=== PATIENT | male | born 1965 | race Caucasian/White ===

== ENCOUNTER 2016-06-18 10:16 | Inpatient (IN) ==
--- NOTE | 2016-06-18 10:24 | Emergency Department Note ---
Disposition Clinical Impression: Dyspnea, Back pain, Discitis of thoracic region, Osteomyelitis, Drug abuse, IV , Lumbar disc disease, Abnormal urinalysis, Abdominal hernia, Spinal stenosis at L4-L5 level, Hypokalemia Disposition: Admitted As Inpatient Referrals: NO,PCP [Primary Care Provider] - Forms: ED Satisfaction Letter General Adult HPI - General Chief complaint: ED Back Pain/Injury Stated complaint: Back Pain, SOB Time Seen by Provider: 06/18/16 10:23 Source: patient, EMS Limitations: no limitations - History of Present Illness HPI Narrative: 51-year-old male reports emergency department via EMS. He complains of back pain. He is unable to localize the pain. The patient reports his on both sides upper and lower. The pain is not necessarily associated with movement, it is constant but does get worse if he moves. He describes pain from his upper back to his lower back. The patient denies any chest pain he reports it hurts when he breathes. There is no history of cough and coughing up blood leg swelling or pain or syncope. There is no history of fever running as ear pain or sore throat. There is no history of trauma fall or injury no bowel or bladder dysfunction or weakness in her arms legs. He reports his urine has been darkened. The patient has never had a kidney stone. Does not describe unilateral back pain or urinary symptoms. There is no history of fever or rash. No convulsions or confusion or headache neck stiffness or weakness or numbness in the arms or legs. The patient has had no unilateral arm or leg weakness no facial pain slurred speech or difficulty moving the arms or legs independently. There is no history of fall or injury. The patient reports he is a smoker and has asthma but does not require oxygen at home. The patient has not been coughing blood. He is not anticoagulated. The patient states that his only other medical problem was a lumbar surgery years ago. He does not describe sciatica. The patient denies any paresthesias numbness tingling or bowel or bladder issues. Pain Scale: 10 - Related Data Allergies Allergy/AdvReac Type Severity Reaction Status Date / Time Erythromycin Base Allergy Hives Verified 06/18/16 10:19 All systems ED: reviewed and negative except as stated. Past Medical History - Past Medical History Medical history: Reports: asthma - Social History Smoking Status: Current every day smoker Smokeless Tobacco Status: No Alcohol use: Reports: none Drug use: Reports: none Physical Exam - General Limitations: no limitations General appearance: alert, in distress - Head Head exam: atraumatic, normocephalic, normal inspection - Eye Eye exam: Present: normal appearance, PERRL, EOMI - ENT ENT exam: normal exam, normal oropharynx, mucous membranes moist, TM's normal bilaterally, normal external ear exam - Neck Neck exam: Present: normal inspection, full ROM, trachea midline. Absent: tenderness - Chest Chest inspection: Present: normal inspection, symmetric chest wall rise. Absent : tenderness - Respiratory Respiratory exam: Present: prolonged expiratory phase. Absent: respiratory distress, wheezes - Cardiovascular Cardiovascular exam: Present: regular rate, normal rhythm, normal heart sounds - Abdominal Exam Abdominal exam: Present: soft, tenderness, hernia (Umbilical region hernia. No iris incarceration appreciated.). Absent: distention, guarding, rebound, rigidity, organomegaly, trauma, Dietrich's sign, Rovsing's sign, tenderness at McBurney's Point, ascites, pulsatile mass Abdominal tenderness: Present: moderate - Rectal Exam Rectal exam: Present: deferred (Patient declines) - Extremities Exam Extremities exam: Present: normal inspection, full ROM, normal capillary refill. Absent: tenderness, pedal edema, joint swelling, calf tenderness - Expanded Lower Extremity Exam Hip/Pelvis exam: Present: full ROM. Absent: tenderness Upper leg exam: Present: full ROM. Absent: tenderness Knee exam: Present: full ROM. Absent: tenderness Lower leg exam: Present: full ROM. Absent: tenderness, Homans' sign Neurovascular/Tendon exam: Absent: pulse deficit, motor deficit, sensory deficit , tendon deficit, extremity cold to touch, pallor - Back Exam Back exam: Present: normal inspection, full ROM, tenderness, CVA tenderness (L) , paraspinal tenderness, vertebral tenderness. Absent: straight leg raise (R), straight leg raise (L) - Neurological Exam Neurological exam: Present: alert, oriented X3, CN II-XII intact. Absent: motor sensory deficit - Psychiatric Psychiatric exam: Present: anxious - Skin Skin exam: Present: warm, dry, intact, normal color. Absent: rash, cyanosis, diaphoresis, erythema, pallor, mottled Course Vital Signs Temperature 97 F L 06/18/16 10:19 Pulse Rate 98 06/18/16 10:19 Respiratory Rate 22 06/18/16 10:19 Blood Pressure 135/92 06/18/16 10:19 O2 Sat by Pulse Oximetry 98 06/18/16 10:19 Temperature 97 F L 06/18/16 10:19 Pulse Rate 88 06/18/16 12:02 Respiratory Rate 18 06/18/16 12:02 Blood Pressure 129/91 06/18/16 12:02 O2 Sat by Pulse Oximetry 98 06/18/16 12:02 Oxygen Delivery Oxygen Delivery Room Air Medical Decision Making - MDM Narrative Medical decision making narrative: The patient appears to have a discitis and/or osteomyelitis of the thoracic spine. He does have a slightly elevated lactate, he was initially slightly tachypneic. IV fluids were given. Cultures were ordered. Vancomycin and Zosyn were ordered. The patient was given Dilaudid and Zofran in the ED. He does have a history of IV drug abuse and he states his last use was a few months ago. Based on the CT findings highly suspicious for discitis or osteomyelitis of the thoracic spine, I think it would be best to admit the patient to the hospital for IV antibiotics and an MRI to define the patient's illness further, rule out spinal epidural abscess, and to confirm osteomyelitis and/or discitis. He is currently stable. I discussed the case with the hospitalist on-call who will accept the patient. I notified Dr. Greco, orthopedic spine gate person, who recommends holding antibiotics in the ED, adding blood cultures and an ESR, he recommends a biopsy of the area in question to positively identify an organism prior to initiating antibiotics. I have discussed Dr. Greco's recommendations with the hospitalist. The patient is pending admission. - Lab Data Lab results reviewed: Yes I reviewed the patient's lab results. Result diagrams: 06/18/16 11:34 06/18/16 11:34 Lab Results 06/18/16 06/18/16 06/18/16 Range/Units 11:05 11:05 11:34 WBC 8.8 (4.3-11.1) K/mcL RBC 4.32 (4.19-5.50) M/mcL Hgb 12.1 L (12.9-16.9) g/dL Hct 36.7 L (37.5-50.1) % MCV 85.0 (83.0-100.0) fL MCH 28.0 (28.0-33.3) pg MCHC 33.0 (31.6-35.5) g/dL RDW 12.8 (11.5-14.5) % Plt Count 386 (140-400) K/mcL MPV 8.5 L (9.4-12.4) fL Immature Gran % 0.5 (0-4) % Seg Neutrophils % 70.8 % Lymphocytes % 18.6 % Monocytes % 9.6 % Eosinophils % 0.2 % Basophils % 0.3 % Neutrophils # 6.2 (1.6-8.9) K/mcL Lymphocytes # 1.6 (0.6-4.6) K/mcL Monocytes # 0.8 (0.0-1.3) K/mcL Eosinophils # 0.0 (0.0-0.6) K/mcL Basophils # 0.0 (0.0-0.2) K/mcL Sodium (136-145) mEq/L Potassium (3.5-4.5) mEq/L Chloride (98-109) mEq/L Carbon Dioxide (19-29) mEq/L BUN (8-26) mg/dL Creatinine (0.72-1.25) mg/dL Est GFR ( Amer) (> 60) Est GFR (Non-Af Amer) (> 60) BUN/Creatinine Ratio (6-26) Glucose (70-99) mg/dL Calculated Osmolality (280-300) Lactic Acid (0.5-2.2) mmol/L Calcium (8.6-10.8) mg/dL Total Bilirubin (0.2-1.2) mg/dL Direct Bilirubin (0.0-0.5) mg/dL Indirect Bilirubin (0.0-1.2) mg/dL AST (5-34) Units/L ALT (0-55) Units/L Alkaline Phosphatase (38-126) Units/L Troponin I (0-0.03) ng/mL C-Reactive Protein (Less than 5) mg/L B-Natriuretic Peptide (0-100) pg/mL Serum Total Protein (6.0-8.3) g/dL Albumin (3.5-5.0) g/dL Globulin (2.4-3.5) g/dL Albumin/Globulin Ratio (1.1-2.2) Lipase (8-78) Units/L Urine Color Dark Yellow (Yellow) Urine Clarity Cloudy A (Clear) Urine pH 7.5 (5.0-8.0) pH Units Ur Specific [place] 1.029 H (1.010-1.025) Urine Protein 30 H (Neg-Trace) mg/dL Urine Glucose (UA) Normal (Normal) mg/dL Urine Ketones Negative (Negative) mg/dL Urine Blood Negative (Negative) Urine Nitrite Negative (Negative) Urine Bilirubin Small H (Negative) Urine Urobilinogen 2.0 H (Normal) mg/dL Ur Leukocyte Esterase Negative (Negative) Urine Microscopic RBC 0-3 (0-3) per hpf Urine Microscopic WBC 0-3 (0-3) per hpf Ur Squamous Epith Cells Moderate H (None-Few) per lpf Urine Bacteria None Seen (None-Few) per hpf Hyaline Casts None Seen (None-Few) per lpf Ur Culture Indicated? NO (NO) Urine Opiates Screen Positive H (Qacyuw=108) ng/mL Ur Barbiturates Screen Negative (Zgiqnf=910) ng/mL Ur Phencyclidine Scrn Negative (Cutoff=25) ng/mL Ur Amphetamines Screen Negative (Lhaglw=3033) ng/mL U Benzodiazepines Scrn Negative (Fwnzvp=839) ng/mL Urine Cocaine Screen Negative (Cutoff= 300) ng/mL U Marijuana (THC) Screen Negative (Cutoff = 50) ng/mL 06/18/16 06/18/16 06/18/16 Range/Units 11:34 11:34 11:34 WBC (4.3-11.1) K/mcL RBC (4.19-5.50) M/mcL Hgb (12.9-16.9) g/dL Hct (37.5-50.1) % MCV (83.0-100.0) fL MCH (28.0-33.3) pg MCHC (31.6-35.5) g/dL RDW (11.5-14.5) % Plt Count (140-400) K/mcL MPV (9.4-12.4) fL Immature Gran % (0-4) % Seg Neutrophils % % Lymphocytes % % Monocytes % % Eosinophils % % Basophils % % Neutrophils # (1.6-8.9) K/mcL Lymphocytes # (0.6-4.6) K/mcL Monocytes # (0.0-1.3) K/mcL Eosinophils # (0.0-0.6) K/mcL Basophils # (0.0-0.2) K/mcL Sodium 136 (136-145) mEq/L Potassium 3.4 L (3.5-4.5) mEq/L Chloride 99 (98-109) mEq/L Carbon Dioxide 29 (19-29) mEq/L BUN 8 (8-26) mg/dL Creatinine 0.75 (0.72-1.25) mg/dL Est GFR ( Amer) > 60 (> 60) Est GFR (Non-Af Amer) > 60 (> 60) BUN/Creatinine Ratio 11 (6-26) Glucose 103 H (70-99) mg/dL Calculated Osmolality 281 (280-300) Lactic Acid 1.0 (0.5-2.2) mmol/L Calcium 9.1 (8.6-10.8) mg/dL Total Bilirubin 0.5 (0.2-1.2) mg/dL Direct Bilirubin 0.3 (0.0-0.5) mg/dL Indirect Bilirubin 0.2 (0.0-1.2) mg/dL AST 29 (5-34) Units/L ALT 18 (0-55) Units/L Alkaline Phosphatase 79 (38-126) Units/L Troponin I 0.00 (0-0.03) ng/mL C-Reactive Protein (Less than 5) mg/L B-Natriuretic Peptide (0-100) pg/mL Serum Total Protein 8.2 (6.0-8.3) g/dL Albumin 2.3 L (3.5-5.0) g/dL Globulin 5.9 H (2.4-3.5) g/dL Albumin/Globulin Ratio 0.4 L (1.1-2.2) Lipase 16 (8-78) Units/L Urine Color (Yellow) Urine Clarity (Clear) Urine pH (5.0-8.0) pH Units Ur Specific [place] (1.010-1.025) Urine Protein (Neg-Trace) mg/dL Urine Glucose (UA) (Normal) mg/dL Urine Ketones (Negative) mg/dL Urine Blood (Negative) Urine Nitrite (Negative) Urine Bilirubin (Negative) Urine Urobilinogen (Normal) mg/dL Ur Leukocyte Esterase (Negative) Urine Microscopic RBC (0-3) per hpf Urine Microscopic WBC (0-3) per hpf Ur Squamous Epith Cells (None-Few) per lpf Urine Bacteria (None-Few) per hpf Hyaline Casts (None-Few) per lpf Ur Culture Indicated? (NO) Urine Opiates Screen (Xvqdgi=936) ng/mL Ur Barbiturates Screen (Bjezma=293) ng/mL Ur Phencyclidine Scrn (Cutoff=25) ng/mL Ur Amphetamines Screen (Bpshxq=2883) ng/mL U Benzodiazepines Scrn (Wpmvrt=153) ng/mL Urine Cocaine Screen (Cutoff= 300) ng/mL U Marijuana (THC) Screen (Cutoff = 50) ng/mL 06/18/16 06/18/16 Range/Units 11:34 11:34 WBC (4.3-11.1) K/mcL RBC (4.19-5.50) M/mcL Hgb (12.9-16.9) g/dL Hct (37.5-50.1) % MCV (83.0-100.0) fL MCH (28.0-33.3) pg MCHC (31.6-35.5) g/dL RDW (11.5-14.5) % Plt Count (140-400) K/mcL MPV (9.4-12.4) fL Immature Gran % (0-4) % Seg Neutrophils % % Lymphocytes % % Monocytes % % Eosinophils % % Basophils % % Neutrophils # (1.6-8.9) K/mcL Lymphocytes # (0.6-4.6) K/mcL Monocytes # (0.0-1.3) K/mcL Eosinophils # (0.0-0.6) K/mcL Basophils # (0.0-0.2) K/mcL Sodium (136-145) mEq/L Potassium (3.5-4.5) mEq/L Chloride (98-109) mEq/L Carbon Dioxide (19-29) mEq/L BUN (8-26) mg/dL Creatinine (0.72-1.25) mg/dL Est GFR ( Amer) (> 60) Est GFR (Non-Af Amer) (> 60) BUN/Creatinine Ratio (6-26) Glucose (70-99) mg/dL Calculated Osmolality (280-300) Lactic Acid (0.5-2.2) mmol/L Calcium (8.6-10.8) mg/dL Total Bilirubin (0.2-1.2) mg/dL Direct Bilirubin (0.0-0.5) mg/dL Indirect Bilirubin (0.0-1.2) mg/dL AST (5-34) Units/L ALT (0-55) Units/L Alkaline Phosphatase (38-126) Units/L Troponin I (0-0.03) ng/mL C-Reactive Protein 125 H (Less than 5) mg/L B-Natriuretic Peptide 50 (0-100) pg/mL Serum Total Protein (6.0-8.3) g/dL Albumin (3.5-5.0) g/dL Globulin (2.4-3.5) g/dL Albumin/Globulin Ratio (1.1-2.2) Lipase (8-78) Units/L Urine Color (Yellow) Urine Clarity (Clear) Urine pH (5.0-8.0) pH Units Ur Specific [place] (1.010-1.025) Urine Protein (Neg-Trace) mg/dL Urine Glucose (UA) (Normal) mg/dL Urine Ketones (Negative) mg/dL Urine Blood (Negative) Urine Nitrite (Negative) Urine Bilirubin (Negative) Urine Urobilinogen (Normal) mg/dL Ur Leukocyte Esterase (Negative) Urine Microscopic RBC (0-3) per hpf Urine Microscopic WBC (0-3) per hpf Ur Squamous Epith Cells (None-Few) per lpf Urine Bacteria (None-Few) per hpf Hyaline Casts (None-Few) per lpf Ur Culture Indicated? (NO) Urine Opiates Screen (Sjhplf=352) ng/mL Ur Barbiturates Screen (Xwzywf=590) ng/mL Ur Phencyclidine Scrn (Cutoff=25) ng/mL Ur Amphetamines Screen (Kclibg=0802) ng/mL U Benzodiazepines Scrn (Cmptbh=040) ng/mL Urine Cocaine Screen (Cutoff= 300) ng/mL U Marijuana (THC) Screen (Cutoff = 50) ng/mL - Radiology Data Radiology results reviewed: Yes I reviewed the patient's radiology results.
[2016-06-18] MEDS ORDERED: *HR* HYDROmorphone (PF) 1 MG/ML SYRINGE IVP ONE ×3 (10:26→22:15)
[2016-06-18] MEDS ORDERED: Ondansetron 4 MG/2 ML VIAL IVP ONE (10:26)
[2016-06-18 11:11] LABS: Bilirubin,Urine Small (Negative); Blood,Urine Negative (Negative); Clarity,Urine Cloudy (Clear); Color,Urine Dark Yellow (Yellow); Glucose,Urine (UA) Normal (Normal); Ketones,Urine Negative (Negative); Leukocyte Esterase,Urine Negative (Negative); Nitrite,Urine Negative (Negative); PH,Urine 7.5 pH Units (5.0-8.0); Protein,Urine 30 mg/dL (Neg-Trace); Specific Gravity,Urine 1.029 (1.010-1.025)
[2016-06-18 11:13] LABS: Bacteria,Urine None Seen per hpf (None-Few); Hyaline Casts,Urine None Seen per lpf (None-Few); RBC,Urine 0-3 per hpf (0-3); Squamous Epithelial Cell,Urine Moderate per lpf (None-Few); WBC,Urine 0-3 per hpf (0-3)
[2016-06-18 11:18] LABS: Amphetamine Screen,Urine Negative ng/mL (Cutoff=1000); Barbiturate Screen,Urine Negative ng/mL (Cutoff=200); Benzodiazepines Screen,Urine Negative ng/mL (Cutoff=200); Cannabinoid Screen,Urine Negative ng/mL (Cutoff = 50); Cocaine Screen,Urine Negative ng/mL (Cutoff= 300); Opiate Screen,Urine Positive ng/mL (Cutoff=300); Phencyclidine Screen,Urine Negative ng/mL (Cutoff=25)
[2016-06-18 11:53] LABS: Basophils % 0.3 %; Eosinophils % 0.2 %; Hematocrit 36.7 % (37.5-50.1); Hemoglobin 12.1 g/dL (12.9-16.9); Immature Granulocytes % 0.5 % (0-4); Lymphocytes # 1.6 K/mcL (0.6-4.6); Lymphocytes % 18.6 %; Mean Platelet Volume 8.5 fL (9.4-12.4); Monocytes # 0.8 K/mcL (0.0-1.3); Monocytes % 9.6 %; Neutrophils # 6.2 K/mcL (1.6-8.9); Platelet Count 386 K/mcL (140-400); Red Blood Count 4.32 M/mcL (4.19-5.50); Red Cell Distribution Width 12.8 % (11.5-14.5); Segmented Neutrophils % 70.8 %
[2016-06-18 12:10] LABS: Alanine Aminotransferase 18 Units/L (0-55); Albumin 2.3 g/dL (3.5-5.0); Albumin/Globulin Ratio 0.4 (1.1-2.2); Alkaline Phosphatase 79 Units/L (38-126); Aspartate Amino Transferase 29 Units/L (5-34); BUN/Creatinine Ratio 11 (6-26); Bilirubin,Direct 0.3 mg/dL (0.0-0.5); Bilirubin,Indirect 0.2 mg/dL (0.0-1.2); Bilirubin,Total 0.5 mg/dL (0.2-1.2); Blood Urea Nitrogen 8 mg/dL (8-26); Calcium 9.1 mg/dL (8.6-10.8); Carbon Dioxide 29 mEq/L (19-29); Chloride 99 mEq/L (98-109); Globulin 5.9 g/dL (2.4-3.5); Glucose 103 mg/dL (70-99); Lipase 16 Units/L (8-78); Osmolality,Calculated 281 (280-300); Potassium 3.4 mEq/L (3.5-4.5); Sodium 136 mEq/L (136-145); Total Protein 8.2 g/dL (6.0-8.3); eGFR For African Americans > 60 (> 60); eGFR For Non-African Americans > 60 (> 60)
[2016-06-18] MEDS ORDERED: Vancomycin 1,000 MG in D5% in Water 250 ML IVPB ONE (13:26)
[2016-06-18] MEDS ORDERED: Piperacillin/Tazobactam 3.375 GM in D5% in Water (Mini-Bag+) 100 ML IVPB ONE (13:26)
[2016-06-18] MEDS ORDERED: Ondansetron 4 MG/2 ML VIAL IVP PRN (14:33)
[2016-06-18] MEDS ORDERED: Naloxone 0.4 MG/ML INJ IVP PRN (14:33)
[2016-06-18] MEDS: *HR* HYDROmorphone (PF) 1 MG/ML SYRINGE IVP PRN ×4 (14:54→21:19)
--- NOTE | 2016-06-18 15:44 | Internal Med History&Physical ---
Date of Encounter: 06/18/16 Time of Encounter: 15:39 Assessment and Plan (1) Discitis of thoracic region Current visit: Yes Status: Acute Discitis/osteomyelitis T5-T6 seen on CT thoracic spine. Dr. Greco consulted from ortho spine, recommended not giving antibiotics until biopsy obtained by IR , as obtaining biopsy prior to antibiotic initiation is standard of care if patient not toxic or septic. If patient becomes toxic or febrile will initiate broad spectrum antibiotics prior to tissue biopsy and culture. - Ortho spine consulted for assistance with management - MRI cervical/thoracic/lumbar spine pending to confirm radiographic finding of discitis/osteomyelitis and rule out epidural abscess. Although CT shows likely discitis at T5-T6 levels, patient's pain is difficult to completely pinpoint and will evaluate entire spine in this patient who is high risk for epidural abscess given his IV drug use history. - Holding on antibiotics while trying to obtain biopsy with IR - IR physician recommended obtaining MRI and if fluid present will obtain sample - If blood cultures return positive will begin treatment prior to biopsy, as it will likely be same organism. - TTE to eval for endocarditis - ID consult for Monday (2) Drug abuse, IV Current visit: Yes Status: Acute Patient states he has not used IV drugs in several months. UDS was positive for opiates only. (3) Abdominal hernia Current visit: Yes Status: Acute Umbilical hernia. Patient states it has been more difficult to keep in place over the past week because he has so much pain in his back. CT showed inflammation of hernia without evidence of strangulation. On exam easily reducible and not tender. Will monitor. Qualifiers: Hernia type: umbilical Obstruction and gangrene presence: without obstruction or gangrene Qualified Code(s): K42.9 - Umbilical hernia without obstruction or gangrene Internal Medicine - H&P: HPI Chief complaint: Back pain Admitted From: Emergency Dept Plans for Post Hospital Care: Home History of present illness: Mr. Tucker is a 51 year old male with history of IVDU who presented to the ER this afternoon with complaint of severe mid back pain which has been present for the past ten days. He states he last used IV drugs (heroin and crushed opiate pills) three months ago. He has had subjective fever and chills the past three nights. His pain is located in the mid back, is 10/10 constantly. He tried taking acetaminophen without improvement. In the ER CT chest/abdomen/ pelvis was performed which showed discitis and osteomyelitis of T5-T6 level. His vitals were stable in the ER, and he is afebrile. He received IV dilaudid in the ER which improved his pain slightly. He states that he is hungry. Past Med Surg Social Fam HX - Past Medical History Medical history: asthma - Social History Smoking Status: Current every day smoker Smokeless Tobacco Status: No Alcohol use: none Drug use: none Occupational status: unemployed Current living situation: Home - Family History Mother Living Status: Still Living Hx Family Cardiac Disorders: No Hx Family Respiratory Disorders: No Hx Family Cancer: No Hx Family GI Disorders: No Hx Family Genitourinary Disorders: No Hx Family Endocrine Disorder: No Hx Family Musculoskeletal Disorders: No Hx Family Neuromuscular Disorders: No Hx Family Neurologic Disorders: No Hx Family HEENT Disorders: No Hx Family Autoimmune Disorders: No Hx Family Reproductive Disorders: No Hx Family Psychosocial Disorders: Yes (schizophrenia) Hx Family Medical Disorders: No Internal Medicine - H&P: Meds No Known Home Drugs 06/18/16 [History] Allergies Erythromycin Base Allergy (Verified 06/18/16 10:19) Hives All Systems PM: A 10-system review of systems was performed and is negative for pertinent findings except as documented above in the HPI. - Constitutional Vitals: Temp Pulse Resp BP Pulse Ox 98.7 F 72 18 136/86 98 06/18/16 14:43 06/18/16 14:43 06/18/16 14:43 06/18/16 14:43 06/18/16 15:05 General appearance: Present: A&O X 3 Exam: Patient appears mildly distressed secondary to back pain. - Head Head exam: Present: atraumatic - Eye Eye exam: Present: EOMI, sclera anicteric - ENT ENT exam: Present: mucous membranes moist - Neck Neck exam general surgery: Present: supple - Respiratory Respiratory exam: Present: CTAB - Cardiovascular Cardiovascular exam: Present: RRR. Absent: diastolic murmur, gallop, rubs, systolic murmur - GI/Abdominal GI/Abdominal exam: Present: hernia (umbilical, easily reducible), soft. Absent : distended, tenderness - Extremities Exam Extremities exam: Absent: pedal edema - Back Exam Back exam: Present: tenderness (thoracic vertebral tenderness to palpation) - Neurological Exam Neurological exam: Present: no focal deficits - Psychiatric Psychiatric exam: Present: normal affect Additional comments: Tearful at times - Skin Skin exam: Absent: rash Internal Med - H&P Results - Labs CBC & Chem 7: 06/18/16 11:34 06/18/16 11:34
[2016-06-19] MEDS: *HR* HYDROmorphone (PF) 1 MG/ML SYRINGE IVP PRN ×11 (01:16→23:07)
--- NOTE | 2016-06-19 02:18 | Event Note ---
Date of Encounter: 06/19/16 Time of Encounter: 02:14 Called by RN with MRI results. I reviewed MRI results and then contacted Dr. Greco to discuss. He will see patient first thing this morning on rounds and discuss with IR for possible CT guided biopsy/aspirate. He wants notified if patient develops any neurologic change and/or hemodynamic compromise. I reviewed vitals with him, which are presently stable. I also called his nurse and advised her to contact me and Dr. rGeco should patient exhibit any of the above noted concerns per Dr. Greco.
[2016-06-19 06:36] LABS: Hematocrit 35.5 % (37.5-50.1); Hemoglobin 11.8 g/dL (12.9-16.9); Mean Corpuscular HGB Conc 33.2 g/dL (31.6-35.5); Mean Corpuscular Volume 84.3 fL (83.0-100.0); Mean Platelet Volume 8.8 fL (9.4-12.4); Platelet Count 386 K/mcL (140-400); Red Blood Count 4.21 M/mcL (4.19-5.50)
[2016-06-19 06:49] LABS: BUN/Creatinine Ratio 15 (6-26); Blood Urea Nitrogen 10 mg/dL (8-26); Calcium 8.4 mg/dL (8.6-10.8); Carbon Dioxide 27 mEq/L (19-29); Chloride 99 mEq/L (98-109); Glucose 101 mg/dL (70-99); Osmolality,Calculated 275 (280-300); Sodium 133 mEq/L (136-145); eGFR For African Americans > 60 (> 60); eGFR For Non-African Americans > 60 (> 60)
[2016-06-19 10:32] LABS: mecA Methicillin-Resist Gene Not Detected (Not Detect)
[2016-06-19 10:33] LABS: Acinetobacter baumannii by PCR Not Detected (Not Detect); Candida albicans by PCR Not Detected (Not Detect); Candida glabrata by PCR Not Detected (Not Detect); Candida krusei by PCR Not Detected (Not Detect); Candida parapsilosis by PCR Not Detected (Not Detect); Candida tropicalis by PCR Not Detected (Not Detect); Enterococcus by PCR Not Detected (Not Detect); Escherichia coli by PCR Not Detected (Not Detect); Klebsiella oxytoca by PCR Not Detected (Not Detect); Klebsiella pneumoniae by PCR Not Detected (Not Detect); Pseudomonas aeruginosa by PCR Not Detected (Not Detect); Serratia marcescens by PCR Not Detected (Not Detect); Staphylococcus aureus by PCR ***DETECTED*** (Not Detect); Streptococcus agalactiae(B)PCR Not Detected (Not Detect); Streptococcus by PCR Not Detected (Not Detect); Streptococcus pneumoniae PCR Not Detected (Not Detect); Streptococcus pyogenes (A) PCR Not Detected (Not Detect)
[2016-06-19] MEDS ORDERED: Vancomycin 1,500 MG in D5% in Water 250 ML IVPB STA (10:59)
[2016-06-19] MEDS: 0.9 % Sodium Chloride 1,000 ML IVC SCH ×2 (11:48→23:14)
[2016-06-19] MEDS ORDERED: Lidocaine -MPF 1% 5 ML AMPUL INFILT ONE (12:20)
--- NOTE | 2016-06-19 12:31 | Spinal Consult Note ---
Date of Encounter: 06/19/16 Time of Encounter: 12:29 Assessment and Plan (1) Osteomyelitis of spine Current Visit: Yes Status: Acute On exam he is afebrile vital signs are stable. He complains of back pain. He is neurovascularly intact with regard to his bilateral lower extremities. He has a negative straight leg raise. His hips move symmetrically. He has no clonus. MRI lumbar spine reveals signal changes within the L4-5 disc space and adjacent vertebral bodies consistent with osteomyelitis. There is some early abscess in the corresponding foramen at this level. Blood cultures performed on admission now reveal positive Staphylococcus cocci. Impression: 1) discitis and osteomyelitis spine 2) early epidural abscess Plan: We are fortunate that this patient has positive blood cultures. At this point we will not need a CT-guided biopsy of the disc space since we have identified an organism and are awaiting final results. The patient will require 6 weeks of intravenous antibiotic therapy, as well as PICC line placement. He cannot have PICC line placed until his bacteremia resolves. He should have serial inflammatory marker evaluations which include CBC with differential, ESR, and CRP to assess response to antibiotic therapy. Twice weekly examinations until parameters become more normalized would be reasonable. He should also be evaluated clinically for any signs of neurologic deficit or decompensation. He is currently stable, but neurologic decompensation would allow for consideration of surgical intervention. Medical management in this patient is reasonable and the current standard of care when an organism has been identified and the patient does not have any progressive neurologic decompensation. Would also suggest infectious disease consult when available. (2) Epidural abscess Current Visit: Yes Status: Acute History of Present Illness Chief complaint: back pain, infection HPI: Mr. Tucker is a 51 year old male With history of previous bouts of cellulitis requiring intravenous antibiotics who is admitted with significant back pain through the emergency department. He had workup which revealed discitis/osteomyelitis of the spine. He was admitted for definitive management. We are asked to see regarding management of his spine infection. He denies fevers or chills or neurologic symptomatology such as weakness in the legs. Past Med Surg Social Fam HX - Past Medical History Medical history: asthma - Social History Smoking Status: Current every day smoker Smokeless Tobacco Status: No Alcohol use: none Drug use: none - Family History Mother Living Status: Still Living Hx Family Cardiac Disorders: No Hx Family Respiratory Disorders: No Hx Family Cancer: No Hx Family GI Disorders: No Hx Family Genitourinary Disorders: No Hx Family Endocrine Disorder: No Hx Family Musculoskeletal Disorders: No Hx Family Neuromuscular Disorders: No Hx Family Neurologic Disorders: No Hx Family HEENT Disorders: No Hx Family Autoimmune Disorders: No Hx Family Reproductive Disorders: No Hx Family Psychosocial Disorders: Yes (schizophrenia) Hx Family Medical Disorders: No Medications and Allergies No Known Home Drugs 06/18/16 [History] Allergies Erythromycin Base Allergy (Verified 06/18/16 10:19) Hives Results - Labs Result Diagrams: 06/19/16 06:15 06/19/16 06:15 Labs: Abnormal lab results Hgb 11.8 g/dL (12.9-16.9) L 06/19/16 06:15 Hct 35.5 % (37.5-50.1) L 06/19/16 06:15 MPV 8.8 fL (9.4-12.4) L 06/19/16 06:15 ESR >= 130 mm/hr (0-10) H 06/18/16 14:30 Sodium 133 mEq/L (136-145) L 06/19/16 06:15 Creatinine 0.68 mg/dL (0.72-1.25) L 06/19/16 06:15 Glucose 101 mg/dL (70-99) H 06/19/16 06:15 Calculated Osmolality 275 (280-300) L 06/19/16 06:15 Calcium 8.4 mg/dL (8.6-10.8) L 06/19/16 06:15 C-Reactive Protein 125 mg/L (Less than 5) H 06/18/16 11:34 Albumin 2.3 g/dL (3.5-5.0) L 06/18/16 11:34 Globulin 5.9 g/dL (2.4-3.5) H 06/18/16 11:34 Albumin/Globulin Ratio 0.4 (1.1-2.2) L 06/18/16 11:34 Urine Clarity Cloudy (Clear) A 06/18/16 11:05 Ur Specific [place] 1.029 (1.010-1.025) H 06/18/16 11:05 Urine Protein 30 mg/dL (Neg-Trace) H 06/18/16 11:05 Urine Bilirubin Small (Negative) H 06/18/16 11:05 Urine Urobilinogen 2.0 mg/dL (Normal) H 06/18/16 11:05 Ur Squamous Epith Cells Moderate per lpf (None-Few) H 06/18/16 11:05 Urine Opiates Screen Positive ng/mL (Smlzpl=581) H 06/18/16 11:05 Staphylococcus sp PCR DETECTED (Not Detect) A 06/18/16 14:25 Staph aureus (PCR) DETECTED (Not Detect) A 06/18/16 14:25 H & H 06/19/16 Range/Units 06:15 Hgb 11.8 L (12.9-16.9) g/dL Hct 35.5 L (37.5-50.1) % All other labs normal. Consult Discharge Plan - Plan Referrals: NO,PCP [Primary Care Provider] -
--- NOTE | 2016-06-19 12:57 | Electrocardiograph Report ---
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
--- NOTE | 2016-06-19 13:14 | ECHO - Doppler Report ---
Echocardiogram Name: Gurjit Tucker Date of Study: 06/19/2016 Date: 1965 Ht: 70.0 in Medical Record#: [id number] Age: 51 Wt: 178.0 lb Gender: Male BSA: 1.99 Order #: [id number] Location: [facility] Room #: 3[facility] Reading Physician: Sigrid Mobley DO [employer] Manager: Roula Mauro RVT, [facility] Ordering Physician: oMlly Duenas MD Primary Physician: None Indications: discitis/osteo Impressions: LVEF 60%. Normal left ventricular size and systolic function. There is evidence of mild diastolic dysfunction of the left ventricle. Normal right ventricular size and function. No significant valvular dysfunction. No pulmonary hypertension. Left Ventricular Wall Motion: Rest Echo Findings All wall segments showed normal motion. Findings: Study Quality * Technically adequate exam. ECG Findings * Normal sinus rhythm. Left Ventricle * Normal LV chamber size, wall thickness and function. * LVEF 60%. * Mild left ventricular diastolic dysfunction. Left Atrium * Normal left atrial size. Mitral Valve * Mildly thickened mitral valve leaflets. * No mitral stenosis. * No mitral regurgitation. Aortic Valve * No aortic regurgitation. * Aortic valve not well visualized. * No aortic stenosis. Tricuspid Valve * Normal tricuspid valve structure. * Trace tricuspid regurgitation. * Estimated RA pressure is 3 mmHg. * Estimated RVSP is 28 mmHg. * No pulmonary hypertension. Pulmonic Valve * Pulmonic valve is not well visualized. * No pulmonic stenosis. * No pulmonic regurgitation. Pulmonary Artery * Pulmonary artery not well visualized. Right Ventricle * Normal right ventricular structure and function. Right Atrium * Normal right atrial size. Interatrial Septum * No evidence of PFO by color Doppler. IVC * Normal IVC dimensions and inspiratory collapse. Pericardium * There is no pericardial effusion present. Aorta * Normally sized aortic root. History History of Smoking Years 42 Packs 1 Family History of CAD Measurements: BP: 122/ 75 2D Normal Values RVIDd: 3.00 cm <2.7 cm IVSd: 1.00 cm 0.6 - 1.0 cm LVIDd: 4.50 cm 3.7 - 5.6 cm LVPWd: .90 cm 0.6 - 1.1 cm LVIDs: 3.10 cm 1.5 - 3.6 cm AO: 2.60 cm < 4.0 cm LA: 3.40 cm 2.0 - 4.0cm %FS: 31.10 cm >25 % LA volume: 33 Mitral Valve Dec Time:299.00 msec Peak E:.56 m/sec Peak A:.76 m/sec E/A Ratio:0.7 Peak E' Lat Zach:9.52 cm/s Peak E' Med Zach:10 cm/s E/E' Lat Ratio:5.9 E/E' Med Ratio:5.6 Tricuspid Valve TV Regurg Peak Grad: 25.00mmHg TV Regurg Peak Zach: 2.52m/sec Updated by Sigrid Mobley on 06/19/2016 1:07:59 PM electronically signed on 06/19/2016 1:08:38 PM with status of Final Wall Motion [place]: 1=Normal, 2=Hypokinesis, 3=Akinesis, 4=Dyskinesis, 5=Aneurysmal, 6=Hyperkinetic, X=Not Visualized (Blank)=Missing
--- NOTE | 2016-06-19 18:50 | Internal Med Progress Note ---
Date of Encounter: 06/19/16 Time of Encounter: 13:45 - Assessment and plan (1) Back pain Current Visit: Yes Status: Acute Assessment and plan: Secondary to discitis, osteomyelitis and an early epidural abscess at L4-5. Plan as below. Qualifiers: Back pain location: low back pain Chronicity: acute Back pain laterality : midline Sciatica presence: without sciatica Qualified Code(s): M54.5 - Low back pain (2) Discitis of thoracic region Current Visit: Yes Status: Acute Assessment and plan: MRI lumbar spine reveals signal changes within the L4-5 disc space and adjacent vertebral bodies consistent with osteomyelitis. There is some early abscess in the corresponding foramen at this level. 06/18/16: Blood cultures x1 is positive for Staphylococcus cocci. Appreciate neurosurgery input. Repeat blood cultures. Continue IV vancomycin. He will require at least 6 weeks of intravenous antibiotic therapy. Will place PICC line after negative blood cultures. Check 2-D echocardiogram. Continue twice weekly serial CBC, ESR and CRP. Neuro assessment daily and if neurologic compensation he will require surgical intervention. Pain control with IV Dilaudid, however patient has a high tolerance due to IV heroin use. (3) Epidural abscess Current Visit: Yes Status: Acute Assessment and plan: As above (4) Osteomyelitis of spine Current Visit: Yes Status: Acute Assessment and plan: Plan as above (5) Drug abuse, IV Current Visit: Yes Status: Acute - Subjective Interval history: Patient reports moderate back pain. No nausea vomiting. He is eating well. - Constitutional Vitals: Temp Pulse Resp BP Pulse Ox 98.9 F 81 16 110/73 97 06/19/16 15:23 06/19/16 15:23 06/19/16 15:23 06/19/16 15:23 06/19/16 15:23 General appearance: Present: cooperative, A&O X 3, pleasant, no acute distress, answers questions appropriately - Eye Eye exam: Present: PERRL, sclera anicteric - Neck Neck exam general surgery: Present: supple, trachea midline. Absent: lymphadenopathy - Respiratory Respiratory exam: Present: CTAB - Cardiovascular Cardiovascular exam: Present: RRR - GI/Abdominal GI/Abdominal exam: Present: normal bowel sounds, soft. Absent: distended, tenderness - Extremities Exam Extremities exam: Absent: pedal edema - Back Exam Back exam: Present: normal inspection, tenderness, vertebral tenderness - Neurological Exam Neurological exam: Present: alert, oriented X3, no focal deficits, strengths equal and symetr throughout. Absent: facial droop, speech deficit Internal Medicine: Result - Labs CBC & Chem 7: 06/19/16 06:15 06/19/16 06:15 Labs: Short CBC 06/19/16 Range/Units 06:15 WBC 9.1 (4.3-11.1) K/mcL Hgb 11.8 L (12.9-16.9) g/dL Hct 35.5 L (37.5-50.1) % Plt Count 386 (140-400) K/mcL BMP 06/19/16 06:15 Sodium 133 L Potassium 4.0 Chloride 99 Carbon Dioxide 27 BUN 10 Creatinine 0.68 L Glucose 101 H Calcium 8.4 L - Impressions Impressions Thoracic Spine MRI 06/18/16 17:11 IMPRESSION: MRI findings consistent with discitis-osteomyelitis at T5-T6 with associated epidural phlegmon/ early abscess. D/ / Miguel Angel Smith MD / Miguel Angel Smith MD Interpreting Provider: Miguel Angel Smith MD Cervical Spine MRI 06/18/16 17:26 IMPRESSION: Motion limited study. No definite evidence of discitis-osteomyelitis or epidural abscess within the cervical spine. Recommend repeating exam when feasible. D/ / Miguel Angel Smith MD / Miguel Angel Smith MD Interpreting Provider: Miguel Angel Smith MD Lumbar Spine MRI 06/18/16 17:26 IMPRESSION: Septic arthritis and discitis-osteomyelitis of the lower lumbar spine with associated epidural phlegmon/ early abscess. The findings were sent to the Radiology Results Communication Center at 10:04 pm on 06/18/2016to be communicated to a licensed caregiver. D/ / Miguel Angel Smith MD / Miguel Angel Smith MD Interpreting Provider: Miguel Angel Smith MD - VTE Documentation of Mechanical Device: Intermittent pneumatic compression device Consult Discharge Plan - Plan Referrals: NO,PCP [Primary Care Provider] -
[2016-06-19] MEDS: Vancomycin 1,250 MG in D5% in Water 250 ML IVPB SCH (23:07)
[2016-06-20] MEDS: *HR* HYDROmorphone (PF) 1 MG/ML SYRINGE IVP PRN ×6 (01:15→18:25)
[2016-06-20 05:31] LABS: Hematocrit 32.9 % (37.5-50.1); Hemoglobin 11.2 g/dL (12.9-16.9); Mean Corpuscular Hemoglobin 28.8 pg (28.0-33.3); Mean Corpuscular Volume 84.6 fL (83.0-100.0); Mean Platelet Volume 8.8 fL (9.4-12.4); Platelet Count 375 K/mcL (140-400); Red Blood Count 3.89 M/mcL (4.19-5.50)
[2016-06-20 05:32] LABS: Basophils # 0.1 K/mcL (0.0-0.2); Basophils % 0.6 %; Eosinophils # 0.1 K/mcL (0.0-0.6); Hematocrit 33.5 % (37.5-50.1); Hemoglobin 11.1 g/dL (12.9-16.9); Immature Granulocytes % 0.2 % (0-4); Lymphocytes # 2.3 K/mcL (0.6-4.6); Lymphocytes % 26.4 %; Mean Corpuscular HGB Conc 33.1 g/dL (31.6-35.5); Mean Corpuscular Volume 84.4 fL (83.0-100.0); Mean Platelet Volume 8.7 fL (9.4-12.4); Monocytes % 11.5 %; Neutrophils # 5.2 K/mcL (1.6-8.9); Platelet Count 379 K/mcL (140-400); Red Blood Count 3.97 M/mcL (4.19-5.50); Red Cell Distribution Width 12.9 % (11.5-14.5); Segmented Neutrophils % 60.3 %
[2016-06-20 05:43] LABS: BUN/Creatinine Ratio 14 (6-26); Blood Urea Nitrogen 10 mg/dL (8-26); Calcium 8.4 mg/dL (8.6-10.8); Carbon Dioxide 26 mEq/L (19-29); Chloride 97 mEq/L (98-109); Glucose 96 mg/dL (70-99); Osmolality,Calculated 271 (280-300); Potassium 4.2 mEq/L (3.5-4.5); Sodium 131 mEq/L (136-145); eGFR For African Americans > 60 (> 60); eGFR For Non-African Americans > 60 (> 60)
[2016-06-20] MEDS ORDERED: Ketorolac 15 MG/ML VIAL IVP SCH (06:00)
[2016-06-20] MEDS: Pregabalin 50 MG CAPSULE PO SCH ×4 (06:12→21:41)
[2016-06-20] MEDS ORDERED: Ketorolac 15 MG/ML VIAL IVP PRN (07:52)
[2016-06-20] MEDS ORDERED: Magnesium Sulfate 1 GM in D5% in Water 100 ML IVPB ONE (07:54)
[2016-06-20] MEDS ORDERED: Aminoglycoside Consult 1 EACH MC ONE (08:51)
[2016-06-20] MEDS: Vancomycin 1,250 MG in D5% in Water 250 ML IVPB SCH (12:49)
[2016-06-20] MEDS: 0.9 % Sodium Chloride 1,000 ML IVC SCH (12:50)
--- NOTE | 2016-06-20 14:30 | Infectious Disease Consult ---
Date of Encounter: 06/20/16 Time of Encounter: 14:28 Assessment and Plan (1) Bacteremia Status: Acute Assessment and plan: Causative organism MSSA. Blood cultures obtained 06/18/16 are positive 1/2 sets for MSSA. Source likely injection site of IV drugs. No evidence of skin/soft tissue infection noted at this time. Complicated due to seeding of the spine. No endocarditis stigmata noted on exam. The patient has two minor Modified Botello' s Criteria. TTE negative for valvular vegetations or valve dysfunction. Will need YANELI prior to discharge. Discontinue Vancomycin. Start cefazolin 2 grams IV Q8H. Duration of treatment depends on the clinical picture, but likely 6 weeks of IV antibiotics due to the OM/discitis. Repeat blood cultures x 2 sets. Await repeat blood cultures. Monitor renal function and for drug toxicity and dose-adjust antibiotics. Consult renal social worker for discharge planning. Patient will need placed in rehab facility to complete antibiotic therapy. Avoid placing central venous access until repeat blood cultures are negative x 48 hours. (2) Discitis of thoracic region Status: Acute Assessment and plan: Causative organism likely MSSA given the patient's blood culture results. Likely secondary to bacteremia. CT of the T-spine and L-spine showed findings consistent with discitis/OM T5-T6 and spinal stenosis at L4-L5. MRI of the T-spine and L-spine showed findings consistent with T5-T6 discitis/ OM with phlegmon/early abscess and septic arthritis and discitis/OM lower lumbar spine with early abscess. ESR >130. CRP 125. Dr. Greco consulted and following. No surgical intervention required at this time. Patient continues to complain of severe pain. Monitor closely for neurological compromise. Continue antibiotics as above. (3) Osteomyelitis of spine Status: Acute (4) Epidural abscess Status: Acute (5) Drug abuse, IV Status: Chronic Assessment and plan: Patient reports last IVDU 1 week ago. Check HIV and Hepatitis profile. (6) Abdominal hernia Status: Chronic Assessment and plan: Easily reducible and no evidence of strangulation. Qualifiers: Hernia type: umbilical Obstruction and gangrene presence: without obstruction or gangrene Qualified Code(s): K42.9 - Umbilical hernia without obstruction or gangrene (7) Spinal stenosis at L4-L5 level Status: Chronic Infectious Disease HPI - Data of Consult Patient: new to practice Consult date: 06/20/16 Requesting Physician: Krys Valdes Primary Care Provider: PCP NO - Consult Narrative Reason for consult: MSSA Bacteremia/Discitis History of present illness: Mr. Tucker is a 51 year old male past medical history of asthma and remote history of lower back surgery. The patient was admitted to the hospital June for discitis/osteomyelitis of the spine. We are consulted for 2016 for further evaluation and treatment recommendations regarding bacteremia and osteomyelitis of the spine. The patient's a 51-year-old male with past medical history as stated above. The patient presented to the emergency department on the day of admission with complaint of severe back pain that had started approximately 2 weeks prior and had progressively gotten worse. Upon arrival, the patient was tachycardic but was otherwise hemodynamically stable. Laboratory studies showed a normal white blood cell count with ESR greater than 1:30. Lactic acid was normal. CRP was markedly elevated at 125. Urinalysis was obtained and was negative. Urine drug screen was positive for opiates. The patient does report a history of IV drug use. He originally told staff that his last use was 3 months ago, but stated to me that he used approximately [address] the abdomen, pelvis, thoracic spine , lumbar spine, and chest were completed in the ER. Findings were consistent with discitis/osteomyelitis of T5-T6, a local hernia, free fluid in pelvis, spinal stenosis at L4-L5. MRI was recommended and completed that showed confirmed osteomyelitis/discitis at T5-T6 with early abscess as well as septic arthritis and discitis/osteomyelitis of the lower lumbar spine with early abscess. The patient was started on empiric antibiotics. He was admitted to the hospital for further evaluation and treatment. Dr. Greco was consulted and has made recommendations. No surgery is warranted at this time. The patient's white blood cell count remains normal. He has been afebrile. We've been asked to evaluate and make further recommendations. During my exam today, patient endorses a history as stated above. He denies any known injury to the back. He does report a history of IV drug use presently one week ago. He does report that he shares needles with his . Some intermittent headaches, but denies neck pain or rigidity. He denies the congestion, earache, or sore throat. He does report subjective fevers, chills, and rigors. He reports some chest pain and shortness of breath secondary to the back pain limiting his ability to take a deep breath. He also reports a chronic , dry cough. He denies any nausea, vomiting, diarrhea, or constipation. He denies abdominal pain and states that his appetite was poor prior to admission. He denies any urinary complaints. He denies any pain or numbness or tingling in any of his extremities. CC: Krys Valdes Past Med Surg Social Fam HX - Past Medical History Attestation: Yes The following information was validated with the patient. Source: patient, old records reviewed, nursing notes reviewed Medical history: asthma Psychiatric history: no psych history - Past Surgical History Surgical History: orthopedic, other (laminectomy) - Social History Smoking Status: Current every day smoker Packs per day: 1 Smokeless Tobacco Status: No Alcohol use: none Drug use: none, IVDU (Heroin) Occupational status: unemployed Current living situation: Home - Independent Activity Level: Independent ambulation Recent Out of Country Travel Within the Last 8 Weeks: No Exposure or Possible Exposure to Illness During Travel: No - Family History Mother Living Status: Still Living Hx Family Cardiac Disorders: No Hx Family Respiratory Disorders: No Hx Family Cancer: No Hx Family GI Disorders: No Hx Family Genitourinary Disorders: No Hx Family Endocrine Disorder: No Hx Family Musculoskeletal Disorders: No Hx Family Neuromuscular Disorders: No Hx Family Neurologic Disorders: No Hx Family HEENT Disorders: No Hx Family Autoimmune Disorders: No Hx Family Reproductive Disorders: No Hx Family Psychosocial Disorders: Yes (schizophrenia) Hx Family Medical Disorders: No Infectious Disease-CN:Meds No Known Home Drugs 06/18/16 [History] Allergies Erythromycin Base Allergy (Verified 06/18/16 10:19) Hives All systems: reviewed and no additional remarkable complaints except as stated Exam - Constitutional Vitals: Temp Pulse Resp BP Pulse Ox 97.8 F 77 18 121/76 98 06/20/16 13:00 06/20/16 13:00 06/20/16 13:00 06/20/16 13:00 06/20/16 11:16 General appearance: average body habitus, cooperative, mild distress - Head Head exam: Present: atraumatic, normal inspection, normocephalic - Eye Eye exam: Present: EOMI, normal appearance, PERRL Pupils: Present: normal accommodation Additional comments: No subcojunctival hemorrhage noted. - ENT ENT exam: Present: mucous membranes moist - Neck Neck exam: Present: normal inspection. Absent: lymphadenopathy - Respiratory Respiratory exam: Present: CTAB. Absent: rales, respiratory distress, rhonchi, wheezes - Cardiovascular Cardiovascular exam: Present: RRR, +S1, +S2. Absent: diastolic murmur, systolic murmur - GI/Abdominal GI/Abdominal exam: Present: normal bowel sounds, soft. Absent: distended, tenderness Additional comments: Easily-reducible hernia noted to the LLQ. - Extremities Exam Extremities exam: Present: normal inspection. Absent: joint swelling, pedal edema, tenderness Additional comments: No endocarditis stigmata noted. - Back Exam Back exam: Present: vertebral tenderness (T5-T6, lumbar spine) - Neurological Exam Neurological exam: Present: alert, oriented X3, no focal deficits - Psychiatric Psychiatric exam: Present: normal affect, normal mood - Skin Skin exam: Present: dry, intact, normal color, warm Infectious Disease CN: Results - Labs CBC & Chem 7: 06/20/16 05:00 06/20/16 05:00 Cultures: Cultures 06/18/16 14:30 Blood Culture - Preliminary Peripheral Venipuncture No growth. 06/18/16 14:25 Blood Culture - Preliminary Peripheral Venipuncture Gram Positive Cocci Serology: Serology 06/18/16 06/18/16 Range/Units 14:25 11:05 Urine Color Dark Yellow (Yellow) Urine Clarity Cloudy A (Clear) Urine pH 7.5 (5.0-8.0) pH Units Ur Specific Orange 1.029 H (1.010-1.025) Urine Protein 30 H (Neg-Trace) mg/dL Urine Glucose (UA) Normal (Normal) mg/dL Urine Ketones Negative (Negative) mg/dL Urine Blood Negative (Negative) Urine Nitrite Negative (Negative) Urine Bilirubin Small H (Negative) Urine Urobilinogen 2.0 H (Normal) mg/dL Ur Leukocyte Esterase Negative (Negative) Urine Microscopic RBC 0-3 (0-3) per hpf Urine Microscopic WBC 0-3 (0-3) per hpf Ur Squamous Epith Cells Moderate H (None-Few) per lpf Urine Bacteria None Seen (None-Few) per hpf Hyaline Casts None Seen (None-Few) per lpf Ur Culture Indicated? NO (NO) A. baumannii (PCR) Not Detected (Not Detect) Nohemi albicans (PCR) Not Detected (Not Detect) C. glabrata (PCR) Not Detected (Not Detect) C. krusei (PCR) Not Detected (Not Detect) C. parapsilosis (PCR) Not Detected (Not Detect) C. tropicalis (PCR) Not Detected (Not Detect) Enterobacteriac sp PCR Not Detected (Not Detect) E. cloacae complex PCR Not Detected (Not Detect) Enterococcus sp PCR Not Detected (Not Detect) E. coli (PCR) Not Detected (Not Detect) H. influenzae (PCR) Not Detected (Not Detect) Klebsiella oxytoca PCR Not Detected (Not Detect) Klebsiella pneumoniae Not Detected (Not Detect) List. monocytogenes PCR Not Detected (Not Detect) N. meningitidis (PCR) Not Detected (Not Detect) Proteus species (PCR) Not Detected (Not Detect) Serratia marcescens PCR Not Detected (Not Detect) Staphylococcus sp PCR DETECTED A (Not Detect) Staph aureus (PCR) DETECTED A (Not Detect) mecA-Methicil Res Gene Not Detected (Not Detect) Streptococcus sp PCR Not Detected (Not Detect) Group A Strep DNA Not Detected (Not Detect) Group B Strep (PCR) Not Detected (Not Detect) Strep pneumoniae (PCR) Not Detected (Not Detect) P. aeruginosa (PCR) Not Detected (Not Detect) Alona/B-Vanco Res Genes N/A (Not Detect) KPC (blaKPC) Detect PCR N/A (Not Detect) - VTE Documentation of Mechanical Device: Intermittent pneumatic compression device Consult Discharge Plan - Plan Referrals: NO,PCP [Primary Care Provider] -
[2016-06-20] MEDS: *HR* OxyCODONE Immed Rel 5 MG TABLET PO PRN ×2 (15:28→21:39)
--- NOTE | 2016-06-20 15:50 | Internal Med Progress Note ---
Date of Encounter: 06/20/16 Time of Encounter: 10:15 - Assessment and plan (1) Back pain Current Visit: Yes Status: Acute Assessment and plan: Secondary to discitis, osteomyelitis and an early epidural abscess at L4-5. Plan as below. Qualifiers: Back pain location: low back pain Chronicity: acute Back pain laterality : midline Sciatica presence: without sciatica Qualified Code(s): M54.5 - Low back pain (2) Discitis of thoracic region Current Visit: Yes Status: Acute Assessment and plan: MRI lumbar spine reveals signal changes within the L4-5 disc space and adjacent vertebral bodies consistent with osteomyelitis. There is some early abscess in the corresponding foramen at this level. 06/18/16: Blood cultures x1 is positive for Staphylococcus cocci. Second blood culture is negative so far. echocardiogram showed LVEF 60%, normal LV function, mild diastolic dysfunction of the LV, no significant valvular dysfunction. Appreciate ID and neurosurgery service input. Continue IV vancomycin until I&S of blood culture. He will require at least 6 weeks of intravenous antibiotic therapy. Will place PICC line after negative blood cultures. Continue twice weekly serial CBC, ESR and CRP. Neuro assessment daily and if neurologic decompensation he will require surgical intervention. Pain control with IV Dilaudid, however patient has a high tolerance due to IV heroin use. start motrin prn. (3) Epidural abscess Current Visit: Yes Status: Acute Assessment and plan: As above (4) Osteomyelitis of spine Current Visit: Yes Status: Acute Assessment and plan: Plan as above (5) Hyponatremia Current Visit: Yes Status: Acute Assessment and plan: Could be hypovolemic hyponatremia given low chloride. Continue IV normal saline. Close monitoring. (6) Drug abuse, IV Current Visit: Yes Status: Chronic - Subjective Interval history: Patient reports back pain is still moderate to severe but got relief after IV toradol. No nausea vomiting. He is eating well. - Constitutional Vitals: Temp Pulse Resp BP Pulse Ox 99.3 F 79 16 114/74 96 06/20/16 15:26 06/20/16 15:26 06/20/16 15:26 06/20/16 15:26 06/20/16 15:26 General appearance: Present: cooperative, A&O X 3, pleasant, no acute distress, answers questions appropriately - Eye Eye exam: Present: PERRL, sclera anicteric - ENT ENT exam: Present: mucous membranes moist - Neck Neck exam general surgery: Present: supple, trachea midline. Absent: lymphadenopathy - Respiratory Respiratory exam: Present: CTAB - Cardiovascular Cardiovascular exam: Present: RRR - GI/Abdominal GI/Abdominal exam: Present: normal bowel sounds, soft. Absent: distended, tenderness - Back Exam Back exam: Present: paraspinal tenderness, tenderness - Neurological Exam Neurological exam: Present: alert, oriented X3, no focal deficits, strengths equal and symetr throughout. Absent: facial droop, speech deficit - Skin Skin exam: Absent: rash Internal Medicine: Result - Labs CBC & Chem 7: 06/20/16 05:00 06/20/16 05:00 Labs: Short CBC 06/20/16 06/20/16 Range/Units 05:00 05:00 WBC 8.9 8.6 (4.3-11.1) K/mcL Hgb 11.2 L 11.1 L (12.9-16.9) g/dL Hct 32.9 L 33.5 L (37.5-50.1) % Plt Count 375 379 (140-400) K/mcL Neutrophils # 5.2 (1.6-8.9) K/mcL BMP 06/20/16 05:00 Sodium 131 L Potassium 4.2 Chloride 97 L Carbon Dioxide 26 BUN 10 Creatinine 0.72 Glucose 96 Calcium 8.4 L - Impressions Impressions Cervical Spine MRI 06/18/16 17:26 IMPRESSION: Motion limited study. No definite evidence of discitis-osteomyelitis or epidural abscess within the cervical spine. Recommend repeating exam when feasible. D/ / Miguel Angel Smith MD / Miguel Angel Simth MD Interpreting Provider: Miguel Angel Smith MD Lumbar Spine MRI 06/18/16 17:26 IMPRESSION: Septic arthritis and discitis-osteomyelitis of the lower lumbar spine with associated epidural phlegmon/ early abscess. The findings were sent to the Radiology Results Communication Center at 10:04 pm on 06/18/2016to be communicated to a licensed caregiver. D/ / Miguel Angel Smith MD / Miguel Angel Smith MD Interpreting Provider: Miguel Angel Smith MD - VTE Documentation of Mechanical Device: Intermittent pneumatic compression device Consult Discharge Plan - Plan Referrals: NO,PCP [Primary Care Provider] -
[2016-06-20] MEDS: ceFAZolin 2,000 MG in D5% in Water 100 ML IVPB SCH ×2 (16:19→23:41)
[2016-06-20] MEDS: Ibuprofen 600 MG TABLET PO PRN ×2 (16:59→23:41)
[2016-06-20 18:18] LABS: HIV-1&2 Antibody & p24 Ag Nonreactive (Nonreactive); Hepatitis A Antibody IgM Nonreactive (Nonreactive); Hepatitis B Core IgM Nonreactive (Nonreactive); Hepatitis B Surface Antigen Nonreactive (Nonreactive)
[2016-06-20 18:28] LABS: Hepatitis C Virus Antibody Reactive (Nonreactive)
[2016-06-21] MEDS: *HR* HYDROmorphone (PF) 1 MG/ML SYRINGE IVP PRN ×4 (00:27→22:18)
[2016-06-21] MEDS: *HR* OxyCODONE Immed Rel 5 MG TABLET PO PRN ×2 (04:38→15:03)
[2016-06-21] MEDS: 0.9 % Sodium Chloride 1,000 ML IVC SCH ×3 (04:42→16:08)
[2016-06-21] MEDS: Ibuprofen 600 MG TABLET PO PRN ×2 (05:32→18:56)
[2016-06-21 06:56] LABS: Basophils % 0.5 %; Eosinophils # 0.3 K/mcL (0.0-0.6); Eosinophils % 3.3 %; Hematocrit 33.4 % (37.5-50.1); Hemoglobin 10.9 g/dL (12.9-16.9); Immature Granulocytes % 0.1 % (0-4); Lymphocytes % 25.5 %; Mean Corpuscular HGB Conc 32.6 g/dL (31.6-35.5); Mean Corpuscular Hemoglobin 28.1 pg (28.0-33.3); Mean Corpuscular Volume 86.1 fL (83.0-100.0); Mean Platelet Volume 8.9 fL (9.4-12.4); Monocytes % 12.4 %; Neutrophils # 4.5 K/mcL (1.6-8.9); Platelet Count 388 K/mcL (140-400); Red Blood Count 3.88 M/mcL (4.19-5.50); Red Cell Distribution Width 13.1 % (11.5-14.5); Segmented Neutrophils % 58.2 %
[2016-06-21 07:04] LABS: BUN/Creatinine Ratio 14 (6-26); Blood Urea Nitrogen 9 mg/dL (8-26); Calcium 8.4 mg/dL (8.6-10.8); Carbon Dioxide 27 mEq/L (19-29); Chloride 104 mEq/L (98-109); Glucose 87 mg/dL (70-99); Magnesium 1.9 mg/dL (1.6-2.6); Osmolality,Calculated 280 (280-300); Potassium 4.5 mEq/L (3.5-4.5); Sodium 136 mEq/L (136-145); eGFR For African Americans > 60 (> 60); eGFR For Non-African Americans > 60 (> 60)
[2016-06-21] MEDS: ceFAZolin 2,000 MG in D5% in Water 100 ML IVPB SCH ×3 (08:14→23:08)
[2016-06-21] MEDS: Pregabalin 50 MG CAPSULE PO SCH ×3 (09:00→21:37)
[2016-06-21] MEDS ORDERED: Tetracaine/Benzocaine/Butamben 200MG/SPRAY (100SPY/BOT) MM ONE (09:43)
[2016-06-21] MEDS ORDERED: 0.9 % Sodium Chloride 500 ML IVC ONE ×2 (09:43→12:21)
[2016-06-21] MEDS: *HR* FentaNYL (PF) 100 MCG/2 ML VIAL IVP PRN ×3 (11:40→12:05)
[2016-06-21] MEDS: *HR* Midazolam HCl 5 MG/5 ML VIAL IVP PRN ×5 (11:40→12:05)
--- NOTE | 2016-06-21 13:18 | ECHO - Doppler Report ---
Transesophageal Echocardiogram Name: Gurjit Tucker Date of Study: 06/21/2016 Date: 1965 Ht: 70.0in Medical Record#: [id number] Age: 51 Wt: 133.0lb Gender: Male BSA: 1.76 Order #: [id number] Location: [facility] Room #: [facility] Reading Physician: Sigrid Mobley DO [place] Alarm Mechanic: Ordering Physician: Krys Valdes MD Primary Physician: None Indications: Bacteremia Impressions: Study was not completed due to inability to adequately sedate patient (see Findings below). Recommend rescheduling with Anesthesiology present, if clinically appropriate. This was communicated to the ordering physician. Medication Given: Time Medication Dose Units Route 11:40 Versed 1 mg IV 11:40 Fentanyl 25 mcg IV 11:45 Versed 2 mg IV 11:45 Fentanyl 25 mcg IV 11:50 Versed 2 mg IV 11:55 Versed 2 mg IV 12:05 Versed 2 mg IV 12:05 Fentanyl 50 mcg IV Findings: Study Quality * Unable to complete study due to difficulty sedating patient. Patient initially demonstrated decreased arousability and responsiveness to sedation. However, upon attempting intubation of the esophagus, the patient became aroused, agitated and was unable to follow commands. Intubation was attempted four times unsuccessfully. Study was therefore terminated. Procedure Summary: After explaining the risks, benefits, and alternatives of the procedure to the patient in detail and answering all questions to satisfaction, an informed consent was obtained in writing. The patient was NPO for the six hours prior to the procedure. The patient denied dysphagia, odynophagia, and loose teeth (patient is edentulous). The patient was monitored with periodic automated blood pressures and continuous pulse oximetry and telemetry. Continuous oxygen was administered by AL. The patient was placed in the full upright position and the posterior oropharynx was anesthetized as above. The patient was then placed in the left lateral decubitus position. IV sedation was administered. Patient demonstrated decreased responsiveness to verbal and tactile stimuli. Intubation of the esophagus was attempted but each time the posterior oropharynx was encountered, the patient became aroused and agitated. He tried to speak while tube was in the mouth and tried pulling on the tube. Over the course of sedation, intubation was attempted four times. However, patient was unable to become adequately sedated. Therefore, procedure was terminated. Complications: Conscious sedation complication History: History of Smoking Years 40 Packs 1 Family History of CAD Previous Echo06/19/2016 BP 114 / 74 Updated by Sigrid Mobley on 06/21/2016 12:58:04 PM electronically signed on 06/21/2016 1:11:37 PM with status of [employer] [place]: 1=Normal, 2=Hypokinesis, 3=Akinesis, 4=Dyskinesis, 5=Aneurysmal, 6=Hyperkinetic, X=Not Visualized (Blank)=Missing
--- NOTE | 2016-06-21 14:06 | Infectious Disease Progress No ---
Date of Encounter: 06/21/16 Time of Encounter: 14:04 - Assessment and Plan (1) Bacteremia Current Visit: Yes Status: Acute Causative organism MSSA. Blood cultures obtained 06/18/16 are positive 1/2 sets for MSSA. Repeat blood cultures drawn 06/19/16 are NGTD x 2 sets. Source likely injection site of IV drugs. No evidence of skin/soft tissue infection noted at this time. Complicated due to seeding of the spine. No endocarditis stigmata noted on exam. The patient has two minor Modified Botello' s Criteria. TTE negative for valvular vegetations or valve dysfunction. YANELI attempted and unsuccessful. Consider repeating with anesthesia. Continue cefazolin 2 grams IV Q8H. Duration of treatment depends on the clinical picture, but likely 6 weeks of IV antibiotics due to the OM/discitis. Monitor renal function and for drug toxicity and dose-adjust antibiotics. Consult clinical social worker for discharge planning. Patient will need placed in rehab facility to complete antibiotic therapy. Okay to place PICC line when VAT is available. (2) Discitis of thoracic region Current Visit: Yes Status: Acute Causative organism likely MSSA given the patient's blood culture results. Likely secondary to bacteremia. CT of the T-spine and L-spine showed findings consistent with discitis/OM T5-T6 and spinal stenosis at L4-L5. MRI of the T-spine and L-spine showed findings consistent with T5-T6 discitis/ OM with phlegmon/early abscess and septic arthritis and discitis/OM lower lumbar spine with early abscess. ESR >130. CRP 125. Dr. Greco consulted and following. No surgical intervention required at this time. Patient continues to complain of severe pain. Monitor closely for neurological compromise. (3) Osteomyelitis of spine Current Visit: Yes Status: Acute (4) Epidural abscess Current Visit: Yes Status: Acute (5) Drug abuse, IV Current Visit: Yes Status: Chronic Patient reports last IVDU 1 week ago. HIV nonreactive. Hepatitis C antibody reactive. (6) Abdominal hernia Current Visit: Yes Status: Chronic Easily reducible and no evidence of strangulation. Qualifiers: Hernia type: umbilical Obstruction and gangrene presence: without obstruction or gangrene Qualified Code(s): K42.9 - Umbilical hernia without obstruction or gangrene (7) Spinal stenosis at L4-L5 level Current Visit: Yes Status: Chronic - Subjective Interval history: Patient seen and examined. Status post attempted YANELI earlier today. Unable to complete due to inability to sedate the patient adequately for the test. Patient drowsy, but awakens to verbal stimuli. Denies any new complaints. Denies any fevers or chills or rigors. Complains of midthoracic and lower lumbar spinal pain. Denies any fevers or chills or rigors. Denies any chest pain , shortness of breath, or cough. Denies any nausea, vomiting, diarrhea, or constipation. Remains nothing by mouth at this time. Denies urinary complaints. Denies pain in his extremities. Denies oral thrush or skin lesions. Infect Dis PN-Objective Data - Labs CBC & Chem 7: 06/21/16 06:03 06/21/16 06:03 Labs: Laboratory Results - last 24 hr 06/20/16 06/21/16 06/21/16 16:58 06:03 06:03 WBC 7.7 RBC 3.88 L Hgb 10.9 L Hct 33.4 L MCV 86.1 MCH 28.1 MCHC 32.6 RDW 13.1 Plt Count 388 MPV 8.9 L Immature Gran % 0.1 Seg Neutrophils % 58.2 Lymphocytes % 25.5 Monocytes % 12.4 Eosinophils % 3.3 Basophils % 0.5 Neutrophils # 4.5 Lymphocytes # 2.0 Monocytes # 1.0 Eosinophils # 0.3 Basophils # 0.0 Sodium 136 Potassium 4.5 Chloride 104 Carbon Dioxide 27 BUN 9 Creatinine 0.65 L Est GFR ( Amer) > 60 Est GFR (Non-Af Amer) > 60 BUN/Creatinine Ratio 14 Glucose 87 Calculated Osmolality 280 Calcium 8.4 L Magnesium 1.9 Hepatitis A IgM Ab Nonreactive Hep Bs Antigen Nonreactive Hep B Core IgM Ab Nonreactive Hepatitis C Ab Screen Reactive H HIV Ag/Ab Combo Qual Nonreactive Cultures: Cultures 06/19/16 11:21 Blood Culture - Preliminary Peripheral Venipuncture No growth. 06/19/16 11:21 Blood Culture - Preliminary Peripheral Venipuncture No growth. Serology 06/20/16 Range/Units 16:58 Hepatitis A IgM Ab Nonreactive (Nonreactive) Hep Bs Antigen Nonreactive (Nonreactive) Hep B Core IgM Ab Nonreactive (Nonreactive) Hepatitis C Ab Screen Reactive H (Nonreactive) HIV Ag/Ab Combo Qual Nonreactive (Nonreactive) Exam - Constitutional Vitals: Temp Pulse Resp BP Pulse Ox 97.4 F L 63 14 99/59 99 06/21/16 13:14 06/21/16 13:14 06/21/16 13:14 06/21/16 13:14 06/21/16 13:14 General appearance: average body habitus, cooperative, no acute distress - Head Head exam: Present: atraumatic, normal inspection, normocephalic - Eye Eye exam: Present: EOMI, normal appearance, PERRL Pupils: Present: normal accommodation Additional comments: No subconjunctival hemorrhage noted. - ENT ENT exam: Present: mucous membranes moist - Neck Neck exam: Present: normal inspection - Respiratory Respiratory exam: Present: CTAB. Absent: rales, respiratory distress, rhonchi, wheezes - Cardiovascular Cardiovascular exam: Present: RRR, +S1, +S2 - GI/Abdominal GI/Abdominal exam: Present: normal bowel sounds, soft. Absent: distended, tenderness - Extremities Exam Extremities exam: Present: normal inspection. Absent: joint swelling, pedal edema, tenderness Additional comments: No endocarditis stigmata noted. - Back Exam Back exam: Present: vertebral tenderness. Absent: CVA tenderness (L) (Thoracic and lumbar spine), CVA tenderness (R) Additional comments: Negative straight leg raise bilaterally. - Neurological Exam Neurological exam: Present: alert, oriented X3, no focal deficits - Psychiatric Psychiatric exam: Present: normal affect, normal mood - Skin Skin exam: Present: dry, intact, normal color, warm - VTE Documentation of Mechanical Device: Intermittent pneumatic compression device Consult Discharge Plan - Plan Referrals: NO,PCP [Primary Care Provider] -
[2016-06-21] MEDS ORDERED: Lidocaine -MPF 1% 5 ML AMPUL INFILT ONE (14:13)
--- NOTE | 2016-06-21 17:31 | Internal Med Progress Note ---
Date of Encounter: 06/21/16 Time of Encounter: 08:45 - Assessment and plan (1) Back pain Current Visit: Yes Status: Acute Assessment and plan: Secondary to discitis, osteomyelitis and an early epidural abscess at L4-5. Plan as below. Qualifiers: Back pain location: low back pain Chronicity: acute Back pain laterality : midline Sciatica presence: without sciatica Qualified Code(s): M54.5 - Low back pain (2) Discitis of thoracic region Current Visit: Yes Status: Acute Assessment and plan: MRI lumbar spine reveals signal changes within the L4-5 disc space and adjacent vertebral bodies consistent with osteomyelitis. There is some early abscess in the corresponding foramen at this level. 06/18/16: Blood cultures x1 is positive for Staphylococcus cocci. Second blood culture is negative so far. echocardiogram showed LVEF 60%, normal LV function, mild diastolic dysfunction of the LV, no significant valvular dysfunction. Appreciate ID and neurosurgery services input. Change to IV Cefazolin given MSSA in blood culture. He will require at least 6 weeks of intravenous antibiotic therapy. Will place PICC line after negative repeat blood cultures. Continue twice weekly serial CBC, ESR and CRP. Neuro assessment daily and if neurologic decompensation he will require surgical intervention. Pain control with motrin and IV Dilaudid, however patient has a high tolerance due to IV heroin use. PLAN: YANELI today (3) Epidural abscess Current Visit: Yes Status: Acute Assessment and plan: As above (4) Osteomyelitis of spine Current Visit: Yes Status: Acute Assessment and plan: Plan as above (5) Hyponatremia Current Visit: Yes Status: Acute Assessment and plan: Could be hypovolemic hyponatremia given low chloride. resolved. stop IV normal saline. Close monitoring. (6) Drug abuse, IV Current Visit: Yes Status: Chronic - Subjective Interval history: Patient's back pain is mildly better controlled with medications. No nausea vomiting. He is eating well. - Constitutional Vitals: Temp Pulse Resp BP Pulse Ox 97.6 F 67 20 110/71 96 06/21/16 14:45 06/21/16 14:45 06/21/16 14:45 06/21/16 14:45 06/21/16 14:45 General appearance: Present: cooperative, A&O X 3, pleasant, no acute distress, answers questions appropriately - Eye Eye exam: Present: PERRL, sclera anicteric - ENT ENT exam: Present: mucous membranes moist - Neck Neck exam general surgery: Present: supple, trachea midline. Absent: lymphadenopathy - Respiratory Respiratory exam: Present: CTAB - Cardiovascular Cardiovascular exam: Present: RRR - GI/Abdominal GI/Abdominal exam: Present: normal bowel sounds, soft. Absent: distended, tenderness - Extremities Exam Extremities exam: Absent: pedal edema - Back Exam Back exam: Present: paraspinal tenderness, tenderness - Neurological Exam Neurological exam: Present: alert, oriented X3, no focal deficits, strengths equal and symetr throughout. Absent: facial droop, speech deficit - Skin Skin exam: Absent: rash Internal Medicine: Result - Labs CBC & Chem 7: 06/21/16 06:03 06/21/16 06:03 Labs: Short CBC 06/21/16 Range/Units 06:03 WBC 7.7 (4.3-11.1) K/mcL Hgb 10.9 L (12.9-16.9) g/dL Hct 33.4 L (37.5-50.1) % Plt Count 388 (140-400) K/mcL Neutrophils # 4.5 (1.6-8.9) K/mcL BMP 06/21/16 06:03 Sodium 136 Potassium 4.5 Chloride 104 Carbon Dioxide 27 BUN 9 Creatinine 0.65 L Glucose 87 Calcium 8.4 L - VTE Documentation of Mechanical Device: Intermittent pneumatic compression device Consult Discharge Plan - Plan Referrals: NO,PCP [Primary Care Provider] -
[2016-06-22] MEDS: *HR* OxyCODONE Immed Rel 5 MG TABLET PO PRN ×3 (00:03→15:09)
[2016-06-22] MEDS: *HR* HYDROmorphone (PF) 1 MG/ML SYRINGE IVP PRN ×3 (05:45→20:14)
[2016-06-22 07:13] LABS: BUN/Creatinine Ratio 16 (6-26); Blood Urea Nitrogen 11 mg/dL (8-26); Carbon Dioxide 26 mEq/L (19-29); Chloride 103 mEq/L (98-109); Glucose 95 mg/dL (70-99); Osmolality,Calculated 279 (280-300); Potassium 4.1 mEq/L (3.5-4.5); Sodium 135 mEq/L (136-145); eGFR For African Americans > 60 (> 60); eGFR For Non-African Americans > 60 (> 60)
[2016-06-22 07:28] LABS: Calcium 8.8 mg/dL (8.6-10.8)
[2016-06-22] MEDS: Pregabalin 50 MG CAPSULE PO SCH ×3 (08:41→21:08)
[2016-06-22] MEDS: ceFAZolin 2,000 MG in D5% in Water 100 ML IVPB SCH ×2 (08:41→17:17)
[2016-06-22] MEDS: Ibuprofen 600 MG TABLET PO PRN ×2 (11:05→17:59)
--- NOTE | 2016-06-22 12:59 | Infectious Disease Progress No ---
Date of Encounter: 06/22/16 Time of Encounter: 12:57 - Assessment and Plan (1) Bacteremia Current Visit: Yes Status: Acute Causative organism MSSA. Blood cultures obtained 06/18/16 are positive 1/2 sets for MSSA. Repeat blood cultures drawn 06/19/16 are NGTD x 2 sets. Source likely injection site of IV drugs. No evidence of skin/soft tissue infection noted at this time. Complicated due to seeding of the spine. No endocarditis stigmata noted on exam. The patient has two minor Modified Botello' s Criteria. TTE negative for valvular vegetations or valve dysfunction. YANELI attempted and unsuccessful. Consider repeating with anesthesia. Continue cefazolin 2 grams IV Q8H. Duration of treatment depends on the clinical picture, but likely 6 weeks of IV antibiotics due to the OM/discitis. Monitor renal function and for drug toxicity and dose-adjust antibiotics. Consult forensic social worker for discharge planning. Patient will need placed in rehab facility to complete antibiotic therapy. PICC line placed 06/22/16. (2) Discitis of thoracic region Current Visit: Yes Status: Acute Causative organism likely MSSA given the patient's blood culture results. Likely secondary to bacteremia. CT of the T-spine and L-spine showed findings consistent with discitis/OM T5-T6 and spinal stenosis at L4-L5. MRI of the T-spine and L-spine showed findings consistent with T5-T6 discitis/ OM with phlegmon/early abscess and septic arthritis and discitis/OM lower lumbar spine with early abscess. ESR >130. CRP 125. Dr. Greco consulted and following. No surgical intervention required at this time. Pain improved. Monitor closely for neurological compromise. (3) Osteomyelitis of spine Current Visit: Yes Status: Acute (4) Epidural abscess Current Visit: Yes Status: Acute (5) Drug abuse, IV Current Visit: Yes Status: Chronic Patient reports last IVDU 1 week ago. HIV nonreactive. Hepatitis C antibody reactive. (6) Abdominal hernia Current Visit: Yes Status: Chronic Easily reducible and no evidence of strangulation. Qualifiers: Hernia type: umbilical Obstruction and gangrene presence: without obstruction or gangrene Qualified Code(s): K42.9 - Umbilical hernia without obstruction or gangrene (7) Spinal stenosis at L4-L5 level Current Visit: Yes Status: Chronic (8) Hepatitis C antibody positive in blood Current Visit: Yes Status: Acute Outpatient GI referral for management. - Subjective Interval history: Patient seen and examined. No acute events noted overnight. Denies any new complaints. Denies any fevers or chills or rigors. Complains of midthoracic pain that radiates around the left ribs and lower lumbar spinal pain. Denies any fevers or chills or rigors. Denies any chest pain, shortness of breath, or cough. Denies any nausea, vomiting, diarrhea, or constipation. Denies urinary complaints. Denies pain in his extremities. Denies oral thrush or skin lesions. Infect Dis PN-Objective Data - Labs CBC & Chem 7: 06/21/16 06:03 06/22/16 06:12 Labs: Laboratory Results - last 24 hr 06/22/16 06:12 Sodium 135 L Potassium 4.1 Chloride 103 Carbon Dioxide 26 BUN 11 Creatinine 0.70 L Est GFR ( Amer) > 60 Est GFR (Non-Af Amer) > 60 BUN/Creatinine Ratio 16 Glucose 95 Calculated Osmolality 279 L Calcium 8.8 Cultures: Cultures 06/19/16 11:21 Blood Culture - Preliminary Peripheral Venipuncture No growth. 06/19/16 11:21 Blood Culture - Preliminary Peripheral Venipuncture No growth. Serology 06/20/16 Range/Units 16:58 Hepatitis A IgM Ab Nonreactive (Nonreactive) Hep Bs Antigen Nonreactive (Nonreactive) Hep B Core IgM Ab Nonreactive (Nonreactive) Hepatitis C Ab Screen Reactive H (Nonreactive) HIV Ag/Ab Combo Qual Nonreactive (Nonreactive) Exam - Constitutional Vitals: Temp Pulse Resp BP Pulse Ox 98.4 F 84 16 114/63 95 06/22/16 11:14 06/22/16 11:14 06/22/16 11:14 06/22/16 11:14 06/22/16 11:14 General appearance: average body habitus, cooperative, no acute distress - Head Head exam: Present: atraumatic, normal inspection, normocephalic - Eye Eye exam: Present: EOMI, normal appearance, PERRL Pupils: Present: normal accommodation Additional comments: No subconjunctival hemorrhage noted. - ENT ENT exam: Present: mucous membranes moist - Neck Neck exam: Present: normal inspection. Absent: lymphadenopathy - Respiratory Respiratory exam: Present: CTAB. Absent: rales, respiratory distress, rhonchi, wheezes - Cardiovascular Cardiovascular exam: Present: RRR, +S1, +S2 - GI/Abdominal GI/Abdominal exam: Present: normal bowel sounds, soft. Absent: distended, tenderness - Extremities Exam Extremities exam: Present: normal inspection. Absent: joint swelling, pedal edema, tenderness Additional comments: No endocarditis stigmata noted. - Back Exam Back exam: Present: vertebral tenderness (mid-thoracic, lower lumbar) - Neurological Exam Neurological exam: Present: alert, oriented X3, no focal deficits - Psychiatric Psychiatric exam: Present: normal affect, normal mood - Skin Skin exam: Present: dry, intact, normal color, warm - VTE Documentation of Mechanical Device: Venous foot pump, device Consult Discharge Plan - Plan Referrals: NO,PCP [Primary Care Provider] -
--- NOTE | 2016-06-22 15:08 | Internal Med Progress Note ---
Date of Encounter: 06/22/16 Time of Encounter: 08:30 - Assessment and plan (1) Back pain Current Visit: Yes Status: Acute Assessment and plan: Secondary to discitis, osteomyelitis and an early epidural abscess at L4-5. Plan as below. Qualifiers: Back pain location: low back pain Chronicity: acute Back pain laterality : midline Sciatica presence: without sciatica Qualified Code(s): M54.5 - Low back pain (2) Discitis of thoracic region Current Visit: Yes Status: Acute Assessment and plan: L5-4 Discitis, osteomyelitis and epidural abscess. MRI lumbar spine reveals signal changes within the L4-5 disc space and adjacent vertebral bodies consistent with osteomyelitis. There is some early abscess in the corresponding foramen at this level. 06/18/16: Blood cultures /2 is positive for MSSA. 06/19/16: Negative blood culture x2. Echocardiogram showed LVEF 60%, normal LV function, mild diastolic dysfunction of the LV, and no significant valvular dysfunction. 06/21: Unsuccessful attempt for YANELI, patient was agitated despite sedation. Appreciate ID and neurosurgery services input. He will require at least 6 weeks of intravenous antibiotic Cefazolin therapy. Continue twice weekly serial CBC, ESR and CRP. Neuro assessment daily and if neurologic decompensation he will require surgical intervention. Pain control with motrin and IV Dilaudid, however patient has a high tolerance due to IV heroin use. Awaiting social insurance adviser input in regards to discharge planning, patient ready for discharge. Will place PICC line before discharge. (3) Epidural abscess Current Visit: Yes Status: Acute Assessment and plan: As above (4) Osteomyelitis of spine Current Visit: Yes Status: Acute Assessment and plan: Plan as above (5) Hyponatremia Current Visit: Yes Status: Acute Assessment and plan: Could be hypovolemic hyponatremia given low chloride. Improved. received IV normal saline. Close monitoring. (6) Drug abuse, IV Current Visit: Yes Status: Chronic - Subjective Interval history: Patient reports pain in his back that is unchanged since admission but pain medications are helping. - Constitutional Vitals: Temp Pulse Resp BP Pulse Ox 98.4 F 84 16 114/63 95 06/22/16 11:14 06/22/16 11:14 06/22/16 11:14 06/22/16 11:14 06/22/16 11:14 General appearance: Present: cooperative, A&O X 3, pleasant, no acute distress, answers questions appropriately Internal Medicine: Result - Labs CBC & Chem 7: 06/21/16 06:03 06/22/16 06:12 Labs: BMP 06/22/16 06:12 Sodium 135 L Potassium 4.1 Chloride 103 Carbon Dioxide 26 BUN 11 Creatinine 0.70 L Glucose 95 Calcium 8.8 - VTE Documentation of Mechanical Device: Intermittent pneumatic compression device Consult Discharge Plan - Plan Referrals: NO,PCP [Primary Care Provider] -
[2016-06-22] MEDS: *HR* OxyCODONE Immed Rel 15 MG TABLET PO PRN (21:08)
[2016-06-23] MEDS: ceFAZolin 2,000 MG in D5% in Water 100 ML IVPB SCH ×3 (00:06→15:43)
[2016-06-23] MEDS: Ibuprofen 600 MG TABLET PO PRN ×4 (00:07→20:40)
[2016-06-23] MEDS: *HR* OxyCODONE Immed Rel 15 MG TABLET PO PRN ×4 (03:25→22:36)
[2016-06-23] MEDS: *HR* HYDROmorphone (PF) 1 MG/ML SYRINGE IVP PRN ×3 (04:06→20:40)
[2016-06-23 07:11] LABS: BUN/Creatinine Ratio 16 (6-26); Blood Urea Nitrogen 11 mg/dL (8-26); C-Reactive Protein 93 mg/L (Less than 5); Calcium 9.4 mg/dL (8.6-10.8); Carbon Dioxide 28 mEq/L (19-29); Chloride 100 mEq/L (98-109); Glucose 91 mg/dL (70-99); Magnesium 1.9 mg/dL (1.6-2.6); Osmolality,Calculated 279 (280-300); Potassium 4.2 mEq/L (3.5-4.5); Sodium 135 mEq/L (136-145); eGFR For African Americans > 60 (> 60); eGFR For Non-African Americans > 60 (> 60)
[2016-06-23 07:26] LABS: Basophils # 0.1 K/mcL (0.0-0.2); Basophils % 0.7 %; Eosinophils # 0.3 K/mcL (0.0-0.6); Eosinophils % 3.6 %; Hematocrit 34.6 % (37.5-50.1); Hemoglobin 11.2 g/dL (12.9-16.9); Immature Granulocytes % 0.3 % (0-4); Lymphocytes # 2.1 K/mcL (0.6-4.6); Lymphocytes % 27.6 %; Mean Corpuscular HGB Conc 32.4 g/dL (31.6-35.5); Mean Corpuscular Hemoglobin 27.9 pg (28.0-33.3); Mean Corpuscular Volume 86.3 fL (83.0-100.0); Mean Platelet Volume 8.9 fL (9.4-12.4); Monocytes # 0.8 K/mcL (0.0-1.3); Neutrophils # 4.4 K/mcL (1.6-8.9); Platelet Count 445 K/mcL (140-400); Red Blood Count 4.01 M/mcL (4.19-5.50); Red Cell Distribution Width 13.2 % (11.5-14.5); Segmented Neutrophils % 57.8 %
[2016-06-23] MEDS: Pregabalin 50 MG CAPSULE PO SCH ×3 (07:45→20:40)
--- NOTE | 2016-06-23 10:49 | Infectious Disease Progress No ---
Date of Encounter: 06/23/16 Time of Encounter: 10:47 - Assessment and Plan (1) Bacteremia Current Visit: Yes Status: Acute Causative organism MSSA. Blood cultures obtained 06/18/16 are positive 1/2 sets for MSSA. Repeat blood cultures drawn 06/19/16 are NGTD x 2 sets. Source likely injection site of IV drugs. No evidence of skin/soft tissue infection noted at this time. Complicated due to seeding of the spine. No endocarditis stigmata noted on exam. The patient has two minor Modified Botello' s Criteria. TTE negative for valvular vegetations or valve dysfunction. YANELI attempted and unsuccessful. Consider repeating with anesthesia. Continue cefazolin 2 grams IV Q8H. Duration of treatment depends on the clinical picture, but likely 6 weeks of IV antibiotics due to the OM/discitis. Monitor renal function and for drug toxicity and dose-adjust antibiotics. Consult social media assistant for discharge planning. Patient will need placed in rehab facility to complete antibiotic therapy. Awaiting insurance approval before patient will be accepted to facility. PICC line placed 06/22/16. (2) Discitis of thoracic region Current Visit: Yes Status: Acute Causative organism likely MSSA given the patient's blood culture results. Likely secondary to bacteremia. CT of the T-spine and L-spine showed findings consistent with discitis/OM T5-T6 and spinal stenosis at L4-L5. MRI of the T-spine and L-spine showed findings consistent with T5-T6 discitis/ OM with phlegmon/early abscess and septic arthritis and discitis/OM lower lumbar spine with early abscess. ESR >130. CRP 125. Repeat ESR still >130. Re-check in a few days. If not improved, may need to consider re-imaging. Dr. Greco consulted and following. No surgical intervention required at this time. Pain improved. Monitor closely for neurological compromise. (3) Osteomyelitis of spine Current Visit: Yes Status: Acute (4) Epidural abscess Current Visit: Yes Status: Acute (5) Drug abuse, IV Current Visit: Yes Status: Chronic Patient reports last IVDU 1 week ago. HIV nonreactive. Hepatitis C antibody reactive. (6) Abdominal hernia Current Visit: Yes Status: Chronic Easily reducible and no evidence of strangulation. Qualifiers: Hernia type: umbilical Obstruction and gangrene presence: without obstruction or gangrene Qualified Code(s): K42.9 - Umbilical hernia without obstruction or gangrene (7) Spinal stenosis at L4-L5 level Current Visit: Yes Status: Chronic (8) Hepatitis C antibody positive in blood Current Visit: Yes Status: Acute Outpatient GI referral for management. - Subjective Interval history: Patient seen and examined. No acute events noted overnight. Denies any new complaints. Denies any fevers or chills or rigors. Complains of midthoracic pain that radiates around the left ribs and lower lumbar spinal pain. States the pain sometimes makes it difficult to take a deep breath. Denies any chest pain, shortness of breath, or cough. Denies any nausea, vomiting, diarrhea, or constipation. Reports large BM yesterday. Denies urinary complaints. Denies pain in his extremities. Denies oral thrush or skin lesions. Infect Dis PN-Objective Data - Labs CBC & Chem 7: 06/23/16 06:39 06/23/16 06:39 Labs: Laboratory Results - last 24 hr 06/23/16 06/23/16 06/23/16 06:39 06:39 06:39 WBC 7.7 RBC 4.01 L Hgb 11.2 L Hct 34.6 L MCV 86.3 MCH 27.9 L MCHC 32.4 RDW 13.2 Plt Count 445 H MPV 8.9 L Immature Gran % 0.3 Seg Neutrophils % 57.8 Lymphocytes % 27.6 Monocytes % 10.0 Eosinophils % 3.6 Basophils % 0.7 Neutrophils # 4.4 Lymphocytes # 2.1 Monocytes # 0.8 Eosinophils # 0.3 Basophils # 0.1 ESR >= 130 H Sodium 135 L Potassium 4.2 Chloride 100 Carbon Dioxide 28 BUN 11 Creatinine 0.70 L Est GFR ( Amer) > 60 Est GFR (Non-Af Amer) > 60 BUN/Creatinine Ratio 16 Glucose 91 Calculated Osmolality 279 L Calcium 9.4 Magnesium 1.9 C-Reactive Protein 93 H Cultures: Cultures 06/19/16 11:21 Blood Culture - Preliminary Peripheral Venipuncture No growth. 06/19/16 11:21 Blood Culture - Preliminary Peripheral Venipuncture No growth. Serology 06/20/16 Range/Units 16:58 Hepatitis A IgM Ab Nonreactive (Nonreactive) Hep Bs Antigen Nonreactive (Nonreactive) Hep B Core IgM Ab Nonreactive (Nonreactive) Hepatitis C Ab Screen Reactive H (Nonreactive) HIV Ag/Ab Combo Qual Nonreactive (Nonreactive) Exam - Constitutional Vitals: Temp Pulse Resp BP Pulse Ox 97.7 F 74 14 100/67 98 06/23/16 06:52 06/23/16 06:52 06/23/16 06:52 06/23/16 06:52 06/23/16 06:52 General appearance: average body habitus, cooperative, no acute distress - Head Head exam: Present: atraumatic, normal inspection, normocephalic - Eye Eye exam: Present: EOMI, normal appearance, PERRL Pupils: Present: normal accommodation Additional comments: No subconjunctival hemorrhage noted. - ENT ENT exam: Present: mucous membranes moist - Neck Neck exam: Present: normal inspection - Respiratory Respiratory exam: Present: CTAB. Absent: rales, respiratory distress, rhonchi, wheezes - Cardiovascular Cardiovascular exam: Present: RRR, +S1, +S2 - GI/Abdominal GI/Abdominal exam: Present: normal bowel sounds, soft. Absent: distended, tenderness Additional comments: Easily-reducible umbilical hernia noted. - Extremities Exam Extremities exam: Present: normal inspection. Absent: joint swelling, pedal edema, tenderness Additional comments: No endocarditis stigmata noted. - Back Exam Back exam: Present: normal inspection, vertebral tenderness (mid-thoracic, lower lumbar spine) - Neurological Exam Neurological exam: Present: alert, oriented X3, no focal deficits - Psychiatric Psychiatric exam: Present: normal affect, normal mood - Skin Skin exam: Present: dry, intact, normal color, warm - Additional findings Additional findings: PICC line noted to the RUE with transparent dressing C/D/I. - VTE Documentation of Mechanical Device: Intermittent pneumatic compression device Consult Discharge Plan - Plan Referrals: NO,PCP [Primary Care Provider] - (Patient is going to [facility] when medecaid approve..)
--- NOTE | 2016-06-23 16:31 | Internal Med Progress Note ---
Date of Encounter: 06/23/16 Time of Encounter: 16:30 - Assessment and plan (1) Discitis of thoracic region Current Visit: Yes Status: Acute Assessment and plan: Suspected to have an MSSA. Need 6 weeks of IV antibiotics and await stands right now. Because he is an IV drug abuser, and left have a line in place, in the frequency of antibiotics, require that he probably needs a long-term acute care type of follow-up. We are currently waiting for him to get eligible for Medicaid to get this preauthorized for the said treatment (2) Osteomyelitis Current Visit: Yes Status: Acute Assessment and plan: Please see plan outlined above Qualifiers: Osteomyelitis type: acute hematogenous Osteomyelitis location: other site Qualified Code(s): M86.08 - Acute hematogenous osteomyelitis, other sites (3) Drug abuse, IV Current Visit: Yes Status: Chronic (4) Osteomyelitis of spine Current Visit: Yes Status: Acute - Time Spent With Patient less than 15 minutes - Subjective Interval history: No new problems have arisen since yesterday. Still getting IV antibiotics for his discitis and bacteremia. Creatine appreciate IDs help - Constitutional Vitals: Temp Pulse Resp BP Pulse Ox 97.6 F 81 16 102/66 96 06/23/16 15:58 06/23/16 15:58 06/23/16 15:58 06/23/16 15:58 06/23/16 15:58 General appearance: Present: cooperative, A&O X 3, pleasant, no acute distress, answers questions appropriately - Respiratory Respiratory exam: Present: CTAB. Absent: rales, rhonchi, wheezes - Cardiovascular Cardiovascular exam: Present: RRR. Absent: systolic murmur Internal Medicine: Result - Labs CBC & Chem 7: 06/23/16 06:39 06/23/16 06:39 Labs: Short CBC 06/23/16 Range/Units 06:39 WBC 7.7 (4.3-11.1) K/mcL Hgb 11.2 L (12.9-16.9) g/dL Hct 34.6 L (37.5-50.1) % Plt Count 445 H (140-400) K/mcL Neutrophils # 4.4 (1.6-8.9) K/mcL BMP 06/23/16 06:39 Sodium 135 L Potassium 4.2 Chloride 100 Carbon Dioxide 28 BUN 11 Creatinine 0.70 L Glucose 91 Calcium 9.4 - VTE Documentation of Mechanical Device: Intermittent pneumatic compression device Consult Discharge Plan - Plan Referrals: NO,PCP [Primary Care Provider] - ([facility] is going to [facility] when medecaid approve..)
[2016-06-24] MEDS ORDERED: Ketorolac 30 MG/ML VIAL IVP ONE (00:19)
[2016-06-24] MEDS: ceFAZolin 2,000 MG in D5% in Water 100 ML IVPB SCH ×4 (00:35→23:51)
[2016-06-24] MEDS: *HR* HYDROmorphone (PF) 1 MG/ML SYRINGE IVP PRN ×3 (03:58→22:12)
[2016-06-24] MEDS: *HR* OxyCODONE Immed Rel 15 MG TABLET PO PRN ×3 (03:58→16:05)
[2016-06-24] MEDS: Pregabalin 50 MG CAPSULE PO SCH ×3 (08:11→20:06)
[2016-06-24] MEDS: Ibuprofen 600 MG TABLET PO PRN ×3 (08:13→21:21)
--- NOTE | 2016-06-24 11:46 | Infectious Disease Progress No ---
Date of Encounter: 06/24/16 Time of Encounter: 11:45 - Assessment and Plan (1) Bacteremia Current Visit: Yes Status: Acute Causative organism MSSA. Blood cultures obtained 06/18/16 are positive 1/2 sets for MSSA. Repeat blood cultures drawn 06/19/16 are NGTD x 2 sets. Source likely injection site of IV drugs. No evidence of skin/soft tissue infection noted at this time. Complicated due to seeding of the spine. No endocarditis stigmata noted on exam. The patient has two minor Modified Botello' s Criteria. TTE negative for valvular vegetations or valve dysfunction. YANELI attempted and unsuccessful. Consider repeating with anesthesia. Continue cefazolin 2 grams IV Q8H. Duration of treatment depends on the clinical picture, but likely 6 weeks of IV antibiotics due to the OM/discitis. Treat through 07/31/16. Monitor renal function and for drug toxicity and dose-adjust antibiotics. Consult [employer] social worker for discharge planning. Patient will need placed in rehab facility to complete antibiotic therapy. Awaiting insurance approval before patient will be accepted to facility. PICC line placed 06/22/16. Get weekly labs for duration of treatment: CBC, BMP, ESR, CRP. Weekly PICC care per protocol. Follow up with ID post-discharge if not transferred to [facility]. (2) Discitis of thoracic region Current Visit: Yes Status: Acute Causative organism likely MSSA given the patient's blood culture results. Likely secondary to bacteremia. CT of the T-spine and L-spine showed findings consistent with discitis/OM T5-T6 and spinal stenosis at L4-L5. MRI of the T-spine and L-spine showed findings consistent with T5-T6 discitis/ OM with phlegmon/early abscess and septic arthritis and discitis/OM lower lumbar spine with early abscess. ESR >130. CRP 125. Repeat ESR still >130. Re-check in a few days. If not improved, may need to consider re-imaging. Dr. Greco consulted and following. No surgical intervention required at this time. Pain improved. Monitor closely for neurological compromise. (3) Osteomyelitis of spine Current Visit: Yes Status: Acute (4) Epidural abscess Current Visit: Yes Status: Acute (5) Drug abuse, IV Current Visit: Yes Status: Chronic Patient reports last IVDU 1 week ago. HIV nonreactive. Hepatitis C antibody reactive. (6) Abdominal hernia Current Visit: Yes Status: Chronic Easily reducible and no evidence of strangulation. Qualifiers: Hernia type: umbilical Obstruction and gangrene presence: without obstruction or gangrene Qualified Code(s): K42.9 - Umbilical hernia without obstruction or gangrene (7) Spinal stenosis at L4-L5 level Current Visit: Yes Status: Chronic (8) Hepatitis C antibody positive in blood Current Visit: Yes Status: Acute Outpatient GI referral for management. - Subjective Interval history: Patient seen and examined. No acute events noted overnight. Denies any new complaints. Denies any fevers or chills or rigors. Complains of midthoracic pain that radiates around the left ribs and lower lumbar spinal pain. States the pain sometimes makes it difficult to take a deep breath. Denies any chest pain, shortness of breath, or cough. Denies any nausea, vomiting, diarrhea, or constipation. Reports large BM two days ago. Denies urinary complaints. Denies pain in his extremities. Denies oral thrush or skin lesions. Still awaiting insurance approval. Infect Dis PN-Objective Data - Labs CBC & Chem 7: 06/23/16 06:39 06/23/16 06:39 Cultures: Cultures 06/23/16 06:39 Blood Culture - Preliminary Peripheral Venipuncture No growth. 06/19/16 11:21 Blood Culture - Preliminary Peripheral Venipuncture No growth. 06/19/16 11:21 Blood Culture - Preliminary Peripheral Venipuncture No growth. Serology 06/20/16 Range/Units 16:58 Hepatitis A IgM Ab Nonreactive (Nonreactive) Hep Bs Antigen Nonreactive (Nonreactive) Hep B Core IgM Ab Nonreactive (Nonreactive) Hepatitis C Ab Screen Reactive H (Nonreactive) HIV Ag/Ab Combo Qual Nonreactive (Nonreactive) Exam - Constitutional Vitals: Temp Pulse Resp BP Pulse Ox 98.4 F 82 18 114/70 95 06/24/16 10:24 06/24/16 10:24 06/24/16 10:24 06/24/16 10:24 06/24/16 10:24 General appearance: average body habitus, cooperative, no acute distress - Head Head exam: Present: atraumatic, normal inspection, normocephalic - Eye Eye exam: Present: EOMI, normal appearance, PERRL Pupils: Present: normal accommodation Additional comments: No subconjunctival hemorrhage noted. - ENT ENT exam: Present: mucous membranes moist - Neck Neck exam: Present: normal inspection - Respiratory Respiratory exam: Present: CTAB. Absent: rales, respiratory distress, rhonchi, wheezes - Cardiovascular Cardiovascular exam: Present: RRR, +S1, +S2 - GI/Abdominal GI/Abdominal exam: Present: normal bowel sounds, soft. Absent: distended, tenderness Additional comments: Easily-reducible umbilical hernia noted. - Extremities Exam Extremities exam: Present: normal inspection. Absent: joint swelling, pedal edema, tenderness Additional comments: No endocarditis stigmata noted. - Back Exam Back exam: Present: normal inspection, vertebral tenderness (mid-thoracic, lower lumbar.) - Neurological Exam Neurological exam: Present: alert, oriented X3, no focal deficits - Psychiatric Psychiatric exam: Present: normal affect, normal mood - Skin Skin exam: Present: dry, intact, normal color, warm - VTE Documentation of Mechanical Device: Intermittent pneumatic compression device Consult Discharge Plan - Plan Referrals: NO,PCP [Primary Care Provider] - (Patient will follow up with PCP [facility])
--- NOTE | 2016-06-24 14:49 | Internal Med Progress Note ---
Date of Encounter: 06/24/16 Time of Encounter: 14:47 - Assessment and plan (1) Discitis of thoracic region Current Visit: Yes Status: Acute Assessment and plan: staph infection (2) Osteomyelitis Current Visit: Yes Status: Acute Assessment and plan: ID foloowing Qualifiers: Osteomyelitis type: acute hematogenous Osteomyelitis location: other site Qualified Code(s): M86.08 - Acute hematogenous osteomyelitis, other sites (3) Drug abuse, IV Current Visit: Yes Status: Chronic Assessment and plan: heroin says he will seek help to quit (4) Epidural abscess Current Visit: Yes Status: Acute Assessment and plan: continue iv antibiotic (5) Bacteremia Current Visit: Yes Status: Acute Assessment and plan: staph mssa - Subjective Interval history: patient with history of IVDA, presents with back pain diagnosed with t5 6 osteomyelitis and staph bacteremia and concern for epidural absess. ID following today says he is doing ok some back pain - Constitutional Vitals: Temp Pulse Resp BP Pulse Ox 98.4 F 82 18 114/70 95 06/24/16 10:24 06/24/16 10:24 06/24/16 10:24 06/24/16 10:24 06/24/16 10:24 General appearance: Present: cooperative, A&O X 3, pleasant, no acute distress, answers questions appropriately - Eye Eye exam: Present: PERRL, conjuntiva pink, sclera anicteric Pupils: Present: PERRL - Neck Neck exam general surgery: Present: supple, trachea midline. Absent: lymphadenopathy - Respiratory Respiratory exam: Present: CTAB. Absent: accessory muscle use, rales, rhonchi, wheezes - Cardiovascular Cardiovascular exam: Present: RRR, +S1, +S2. Absent: diastolic murmur, gallop, rubs, systolic murmur - Back Exam Back exam: Present: paraspinal tenderness Internal Medicine: Result - Labs CBC & Chem 7: 06/23/16 06:39 06/23/16 06:39 - VTE Documentation of Mechanical Device: Intermittent pneumatic compression device Consult Discharge Plan - Plan Referrals: NO,PCP [Primary Care Provider] - (Patient will follow up with PCP at the [facility])
[2016-06-25] MEDS: *HR* OxyCODONE Immed Rel 15 MG TABLET PO PRN ×3 (00:53→14:03)
[2016-06-25] MEDS: Ibuprofen 600 MG TABLET PO PRN ×2 (03:27→11:08)
[2016-06-25] MEDS: *HR* HYDROmorphone (PF) 1 MG/ML SYRINGE IVP PRN ×4 (06:11→20:32)
[2016-06-25] MEDS: ceFAZolin 2,000 MG in D5% in Water 100 ML IVPB SCH ×2 (08:46→16:28)
[2016-06-25] MEDS: Pregabalin 50 MG CAPSULE PO SCH ×3 (08:46→20:32)
--- NOTE | 2016-06-25 11:19 | Internal Med Progress Note ---
Date of Encounter: 06/25/16 Time of Encounter: 11:17 - Assessment and plan (1) Discitis of thoracic region Current Visit: Yes Status: Acute Assessment and plan: staph infection (2) Osteomyelitis Current Visit: Yes Status: Acute Assessment and plan: mssa infection Id following Qualifiers: Osteomyelitis type: acute hematogenous Osteomyelitis location: other site Qualified Code(s): M86.08 - Acute hematogenous osteomyelitis, other sites (3) Drug abuse, IV Current Visit: Yes Status: Chronic Assessment and plan: iv drug abuse with drug seeking behavior (4) Epidural abscess Current Visit: Yes Status: Acute Assessment and plan: from staph infection (5) Bacteremia Current Visit: Yes Status: Acute Assessment and plan: Id following - Subjective Interval history: patient with history of IVDA, presents with back pain diagnosed with t5 6 osteomyelitis and staph bacteremia and concern for epidural absess. ID following today says he is doing ok some back pain today asking for more narcotics says he was getting dilaudid 2 mg q 2 hrs 1 mg q 4hrs is enough afebrilem wbc normal - Constitutional Vitals: Temp Pulse Resp BP Pulse Ox 98.1 F 98 18 113/75 96 06/25/16 11:09 06/25/16 11:09 06/25/16 11:09 06/25/16 11:09 06/25/16 11:09 General appearance: Present: cooperative, A&O X 3, pleasant, no acute distress, answers questions appropriately - Head Head exam: Present: atraumatic, normocephalic - Eye Eye exam: Present: PERRL, conjuntiva pink, sclera anicteric Pupils: Present: PERRL - Neck Neck exam general surgery: Present: supple, trachea midline. Absent: lymphadenopathy - Respiratory Respiratory exam: Present: CTAB. Absent: accessory muscle use, rales, rhonchi, wheezes - GI/Abdominal GI/Abdominal exam: Present: normal bowel sounds, soft, no peritoneal signs. Absent: distended, tenderness - Back Exam Back exam: Present: tenderness Internal Medicine: Result - Labs CBC & Chem 7: 06/23/16 06:39 06/23/16 06:39 - VTE Documentation of Mechanical Device: Intermittent pneumatic compression device Consult Discharge Plan - Plan Referrals: NO,PCP [Primary Care Provider] - (Patient will follow up with PCP at the [facility])
[2016-06-26] MEDS: *HR* HYDROmorphone (PF) 1 MG/ML SYRINGE IVP PRN ×4 (00:27→20:23)
[2016-06-26] MEDS: ceFAZolin 2,000 MG in D5% in Water 100 ML IVPB SCH ×3 (00:27→16:03)
[2016-06-26] MEDS: *HR* OxyCODONE Immed Rel 15 MG TABLET PO PRN ×3 (00:27→16:04)
[2016-06-26] MEDS: Pregabalin 50 MG CAPSULE PO SCH ×3 (07:23→20:23)
--- NOTE | 2016-06-26 08:58 | Internal Med Progress Note ---
<Kathryn Bernal - Last Filed: 06/26/16 11:37> Date of Encounter: 06/26/16 Time of Encounter: 11:37 - Assessment and plan (1) Bacteremia Current Visit: Yes Status: Acute Assessment and plan: MSSA, likely secondary to IVDU Blood cultures obtained 06/18/16 are positive 1/2 sets for MSSA. Repeat blood cultures drawn 06/19/16 are NGTD x 2 sets. PICC line was placed 06/22/16 Plan: -Continue Cefazolin 2gm IV Q8H, expect patient to need IV tx through 07/31/16 -Patient awaiting placement and insurance approval for ECF placment -Patient will need weekly labs during treatment: CBC, BMP, ESR, CRP, weekly PICC care (2) Discitis of thoracic region Current Visit: Yes Status: Acute Assessment and plan: Causative organism likely MSSA given the patient's blood culture results, likely secondary to bacteremia. CT of the T-spine and L-spine showed findings consistent with discitis/OM T5-T6 and spinal stenosis at L4-L5. MRI of the T-spine and L-spine showed findings consistent with T5-T6 discitis/ OM with phlegmon/early abscess and septic arthritis and discitis/OM lower lumbar spine with early abscess. Dr. Greco consulted and following. No surgical intervention required at this time. Pain improved. Plan: -Will recheck BMP, ESR, CRP today. Per ID if ESR not improved from >130, may need to consider re-imaging. -Monitor closely for neurological compromise. (3) Osteomyelitis of spine Current Visit: Yes Status: Acute Assessment and plan: Plan as above (4) Epidural abscess Current Visit: Yes Status: Acute Assessment and plan: Plan as above (5) Spinal stenosis at L4-L5 level Current Visit: Yes Status: Chronic Assessment and plan: Plan as above (6) Drug abuse, IV Current Visit: Yes Status: Chronic Assessment and plan: Patient reports last IVDU 1 week ago. HIV nonreactive. Hepatitis C antibody reactive. (7) Hepatitis C antibody positive in blood Current Visit: Yes Status: Acute Assessment and plan: Outpatient GI referral. (8) Abdominal hernia Current Visit: Yes Status: Chronic Assessment and plan: reducible, non-strangulated Qualifiers: Hernia type: umbilical Obstruction and gangrene presence: without obstruction or gangrene Qualified Code(s): K42.9 - Umbilical hernia without obstruction or gangrene - Subjective Interval history: Patient seen and examined. He is sitting up in the bed sleeping. He states that his pain is better than yesterday. He denies any chest pain or SOB. - Constitutional Vitals: Temp Pulse Resp BP Pulse Ox 99.0 F 101 18 117/80 94 L 06/26/16 03:50 06/26/16 03:50 06/26/16 03:50 06/26/16 03:50 06/26/16 03:50 General appearance: Present: cooperative, disheveled, A&O X 3, pleasant, no acute distress, answers questions appropriately - Head Head exam: Present: atraumatic, normocephalic - Eye Eye exam: Present: EOMI, PERRL, conjuntiva pink, sclera anicteric Pupils: Present: PERRL - Respiratory Respiratory exam: Present: CTAB. Absent: accessory muscle use, respiratory distress - Cardiovascular Cardiovascular exam: Present: +S1, +S2, tachycardia. Absent: diastolic murmur, gallop, rubs, systolic murmur - GI/Abdominal GI/Abdominal exam: Present: hernia (umbilical, reducible, non-tender or erythemetous, no eccymosis), normal bowel sounds, soft, no peritoneal signs. Absent: distended, tenderness - Extremities Exam Extremities exam: Present: warm, radial pulses palpable and symetrical. Absent : calf tenderness, cyanotic, pedal edema - Back Exam Back exam: Present: tenderness - Neurological Exam Neurological exam: Present: oriented X3, no focal deficits. Absent: facial droop, speech deficit - Psychiatric Psychiatric exam: Present: normal affect, normal mood - Skin Skin exam: Present: diaphoretic. Absent: cyanosis, erythema, rash Internal Medicine: Result - Labs CBC & Chem 7: 06/23/16 06:39 06/23/16 06:39 - VTE Documentation of Mechanical Device: Intermittent pneumatic compression device Consult Discharge Plan - Plan Referrals: NO,PCP [Primary Care Provider] - ([facility] <Kurt Lugo - Last Filed: 06/26/16 14:36> - Assessment and plan (1) MSSA (methicillin susceptible Staphylococcus aureus) septicemia Current Visit: Yes Status: Acute Assessment and plan: On IV abx. Presumptive spread to thoracic spine with discitis and osteomyelitis. Due to IV drug abuse. (2) Discitis of thoracic region Current Visit: Yes Status: Acute Assessment and plan: T5-6 On IV abx Has associated osteomyelitis as well. Repeat blood work (ESR). May need repeat imaging. (3) Osteomyelitis Current Visit: Yes Status: Acute Assessment and plan: Presumptive MSSA due to positive blood culture. On IV Ancef at this time. Qualifiers: Osteomyelitis type: acute hematogenous Osteomyelitis location: other site Qualified Code(s): M86.08 - Acute hematogenous osteomyelitis, other sites (4) Spinal stenosis at L4-L5 level Current Visit: Yes Status: Chronic (5) Hepatitis C antibody positive in blood Current Visit: Yes Status: Acute - Constitutional Vitals: Temp Pulse Resp BP Pulse Ox 99.0 F 101 18 117/80 94 L 06/26/16 03:50 06/26/16 03:50 06/26/16 03:50 06/26/16 03:50 06/26/16 03:50 Internal Medicine: Result - Labs CBC & Chem 7: 06/23/16 06:39 06/26/16 11:57 Labs: BMP 06/26/16 11:57 Sodium 132 L Potassium 4.7 H Chloride 96 L Carbon Dioxide 28 BUN 13 Creatinine 0.80 Glucose 92 Calcium 9.7 - Attending Attestation I examined this patient and my medical decision-making was reviewed with the Resident Physician on 06/26/16. I agree with the documented findings, disposition and treatment plan as described except to the extent set forth below. Mr Tucker is currently admitted for acute thoracic diskitis and osteomyelitis. He is high risk due to potential for worsening infectious and neurologic status. Mr. Tuckre continues to have pain but says is a little better today. No new symptoms. No dyspnea. No high fevers. No new neurologic symptoms. Exam Alert. Comfortable at this time. Heart reg No wheeze Moves all extremities I/P 1. MSSA thoracic diskitis/osteomyelitis - on IV abx 2. MSSA bacteremia 3. Hx IV drug abuse Further diagnoses and plan as above.
[2016-06-26 12:18] LABS: BUN/Creatinine Ratio 16 (6-26); Blood Urea Nitrogen 13 mg/dL (8-26); C-Reactive Protein 84 mg/L (Less than 5); Calcium 9.7 mg/dL (8.6-10.8); Carbon Dioxide 28 mEq/L (19-29); Chloride 96 mEq/L (98-109); Glucose 92 mg/dL (70-99); Osmolality,Calculated 274 (280-300); Potassium 4.7 mEq/L (3.5-4.5); Sodium 132 mEq/L (136-145); eGFR For African Americans > 60 (> 60); eGFR For Non-African Americans > 60 (> 60)
[2016-06-27] MEDS: *HR* OxyCODONE Immed Rel 15 MG TABLET PO PRN ×2 (00:48→08:34)
[2016-06-27] MEDS: *HR* HYDROmorphone (PF) 1 MG/ML SYRINGE IVP PRN ×3 (00:48→09:44)
[2016-06-27] MEDS: ceFAZolin 2,000 MG in D5% in Water 100 ML IVPB SCH ×2 (05:21→10:38)
--- NOTE | 2016-06-27 07:35 | Internal Med Progress Note ---
Addendum entered and electronically signed by Kathryn Bernal DO 06/27/16 11 :50: Will switch patient to ER coverage for pain today (start oxycontin 40mg po BID) and discontinue dilaudid. Will continue current PRN pain meds and adjust as necessary. Original Note: <Kathryn Bernal - Last Filed: 06/27/16 08:45> Date of Encounter: 06/27/16 Time of Encounter: 07:33 - Assessment and plan (1) Bacteremia Current Visit: Yes Status: Acute Assessment and plan: MSSA, likely secondary to IVDU Blood cultures obtained 06/18/16 are positive 1/2 sets for MSSA. Repeat blood cultures drawn 06/19/16 are NGTD x 2 sets. PICC line was placed 06/22/16 Plan: -Continue Cefazolin 2gm IV Q8H, expect patient to need IV tx through 07/31/16 -Patient awaiting placement and insurance approval for ECF placment -Patient will need weekly labs during treatment: CBC, BMP, ESR, CRP, weekly PICC care (2) Discitis of thoracic region Current Visit: Yes Status: Acute Assessment and plan: Causative organism likely MSSA given the patient's blood culture results, likely secondary to bacteremia. CT of the T-spine and L-spine showed findings consistent with discitis/OM T5-T6 and spinal stenosis at L4-L5. MRI of the T-spine and L-spine showed findings consistent with T5-T6 discitis/ OM with phlegmon/early abscess and septic arthritis and discitis/OM lower lumbar spine with early abscess. Dr. Greco consulted and following. No surgical intervention required at this time. Pain improved. 06/26: SCr 0.8, GFR >60, CRP 84 06/27: ESR >130 Plan: -Monitor closely for neurological compromise. (3) Osteomyelitis of spine Current Visit: Yes Status: Acute Assessment and plan: Plan as above (4) Epidural abscess Current Visit: Yes Status: Acute Assessment and plan: Plan as above (5) Spinal stenosis at L4-L5 level Current Visit: Yes Status: Chronic Assessment and plan: Plan as above (6) Drug abuse, IV Current Visit: Yes Status: Chronic Assessment and plan: Patient reports last IVDU 1 week prior to admission. HIV nonreactive. Hepatitis C antibody reactive. (7) Hepatitis C antibody positive in blood Current Visit: Yes Status: Acute Assessment and plan: Outpatient GI referral. (8) Abdominal hernia Current Visit: Yes Status: Chronic Assessment and plan: reducible, non-strangulated Qualifiers: Hernia type: umbilical Obstruction and gangrene presence: without obstruction or gangrene Qualified Code(s): K42.9 - Umbilical hernia without obstruction or gangrene - Subjective Interval history: Patient seen and examined. He is sitting up in the bed eating breakfast. He states that his pain is better than yesterday. He states that he has pain in his ribs radiating from his thoracic spine. It is worse with inspiration. He denies any chest pain or SOB. - Constitutional Vitals: Temp Pulse Resp BP Pulse Ox 98.3 F 96 18 97/67 95 06/27/16 03:58 06/27/16 03:58 06/27/16 03:58 06/27/16 03:58 06/27/16 03:58 General appearance: Present: cooperative, disheveled, A&O X 3, pleasant, no acute distress, answers questions appropriately - Head Head exam: Present: atraumatic, normocephalic - Eye Eye exam: Present: PERRL, conjuntiva pink, sclera anicteric Pupils: Present: PERRL - Respiratory Respiratory exam: Present: CTAB. Absent: accessory muscle use, rales, respiratory distress, rhonchi, wheezes, tachypnea - Cardiovascular Cardiovascular exam: Present: RRR, +S1, +S2. Absent: diastolic murmur, gallop, rubs, systolic murmur - GI/Abdominal GI/Abdominal exam: Present: hernia (reducible, non-strangulated umbilical hernia ), normal bowel sounds, soft, no peritoneal signs. Absent: distended, tenderness - Extremities Exam Extremities exam: Present: warm, radial pulses palpable and symetrical. Absent : calf tenderness, cyanotic, pedal edema - Back Exam Back exam: Present: normal inspection, tenderness. Absent: rash noted - Neurological Exam Neurological exam: Present: alert, oriented X3. Absent: facial droop, speech deficit - Psychiatric Psychiatric exam: Present: normal affect, normal mood - Skin Skin exam: Present: dry, intact. Absent: diaphoretic, erythema, rash Internal Medicine: Result - Labs CBC & Chem 7: 06/23/16 06:39 06/26/16 11:57 Labs: BMP 06/26/16 11:57 Sodium 132 L Potassium 4.7 H Chloride 96 L Carbon Dioxide 28 BUN 13 Creatinine 0.80 Glucose 92 Calcium 9.7 - VTE Documentation of Mechanical Device: Intermittent pneumatic compression device Consult Discharge Plan - Plan Referrals: NO,PCP [Primary Care Provider] - (Patient will [facility]) <Kurt Lugo - Last Filed: 06/27/16 13:01> - Assessment and plan (1) MSSA (methicillin susceptible Staphylococcus aureus) septicemia Current Visit: Yes Status: Acute Assessment and plan: On IV abx. (2) Discitis of thoracic region Current Visit: Yes Status: Acute (3) Osteomyelitis Current Visit: Yes Status: Acute Qualifiers: Osteomyelitis type: acute hematogenous Osteomyelitis location: other site Qualified Code(s): M86.08 - Acute hematogenous osteomyelitis, other sites (4) Spinal stenosis at L4-L5 level Current Visit: Yes Status: Chronic (5) Hepatitis C antibody positive in blood Current Visit: Yes Status: Acute (6) Chronic pain disorder Current Visit: Yes Status: Chronic - Constitutional Vitals: Temp Pulse Resp BP Pulse Ox 98.2 F 97 18 102/70 95 06/27/16 07:53 06/27/16 07:53 06/27/16 07:53 06/27/16 07:53 06/27/16 07:53 Internal Medicine: Result - Labs CBC & Chem 7: 06/23/16 06:39 06/26/16 11:57 - Attending Attestation I examined this patient and my medical decision-making was reviewed with the Resident Physician on 06/27/16. I agree with the documented findings, disposition and treatment plan as described except to the extent set forth below. Mr. Tucker is currently admitted for acute thoracic discitis/osteomyelitis presumed due to MSSA. He is high risk due to multiple medications and changes as well as risk for worsening neurologic status. Mr. Tucker said he slept a little better. He feels maybe pain is beginning to get a little better as well. No fever or chills. No cough. Exam Alert. Comfortable Heart reg No wheeze I/P 1. Acute T5-6 discitis/osteomyelitis presumed due to MSSA - on IV abx 2. Chronic pain Pt with hx of IV drug abuse. Has clear pain issues but needs pain medications. Will start longer acting PO in the hopes of stopping IV med and then weaning off PO meds in future. D/C planning - ? [facility] Further diagnoses and plan as above.
[2016-06-27 07:53] VITALS: BP 102/70
[2016-06-27] MEDS: Pregabalin 50 MG CAPSULE PO SCH ×2 (08:34→15:25)
[2016-06-27] MEDS ORDERED: *HR* OxyCODONE ER (12 HR) 40 MG TABLET PO SCH (11:16)
--- NOTE | 2016-06-27 12:58 | Infectious Disease Progress No ---
Date of Encounter: 06/27/16 Time of Encounter: 12:55 - Assessment and Plan (1) Bacteremia Current Visit: Yes Status: Acute Causative organism MSSA. Blood cultures obtained 06/18/16 are positive 1/2 sets for MSSA. Repeat blood cultures drawn 06/19/16 are negative x 2 sets. Source likely injection site of IV drugs. No evidence of skin/soft tissue infection noted at this time. Complicated due to seeding of the spine. No endocarditis stigmata noted on exam. The patient has two minor Modified Botello' s Criteria. TTE negative for valvular vegetations or valve dysfunction. YANELI attempted and unsuccessful. Continue cefazolin 2 grams IV Q8H. Duration of treatment depends on the clinical picture, but likely 6 weeks of IV antibiotics due to the OM/discitis. Treat through 07/31/16. Monitor renal function and for drug toxicity and dose-adjust antibiotics. conference services manager consulted and following. Patient has been approved for Medicaid. Awaiting ECF/LTACH placement. PICC line placed 06/22/16. Get weekly labs for duration of treatment: CBC, BMP, ESR, CRP. Weekly PICC care per protocol. Follow up with ID 2 weeks post-discharge if not transferred to LTACH. (2) Discitis of thoracic region Current Visit: Yes Status: Acute Causative organism likely MSSA given the patient's blood culture results. Likely secondary to bacteremia. CT of the T-spine and L-spine showed findings consistent with discitis/OM T5-T6 and spinal stenosis at L4-L5. MRI of the T-spine and L-spine showed findings consistent with T5-T6 discitis/ OM with phlegmon/early abscess and septic arthritis and discitis/OM lower lumbar spine with early abscess. Dr. Greco consulted and following. No surgical intervention required at this time. Pain improved. Monitor closely for neurological compromise. Continue antibiotics as above. (3) Osteomyelitis of spine Current Visit: Yes Status: Acute (4) Epidural abscess Current Visit: Yes Status: Acute (5) Drug abuse, IV Current Visit: Yes Status: Chronic Patient reports last IVDU 1 prior to admission. HIV nonreactive. Hepatitis C antibody reactive. (6) Abdominal hernia Current Visit: Yes Status: Chronic Easily reducible and no evidence of strangulation. Qualifiers: Qualified Code(s): K42.9 - Umbilical hernia without obstruction or gangrene (7) Spinal stenosis at L4-L5 level Current Visit: Yes Status: Chronic (8) Hepatitis C antibody positive in blood Current Visit: Yes Status: Acute Outpatient GI referral for management. - Subjective Interval history: Patient seen and examined. Weekend notes reviewed. No acute events noted. Denies any new complaints. Denies any fevers or chills or rigors. Complains of midthoracic pain that radiates around the left ribs and lower lumbar spinal pain , but states it seems to be getting better. States the pain sometimes makes it difficult to take a deep breath. Denies any chest pain, shortness of breath, or cough. Denies any nausea, vomiting, diarrhea, or constipation. Reports large BM this morning. Denies urinary complaints. Denies pain in his extremities. Denies oral thrush or skin lesions. Insurance has been approved. Awaiting placement. Infect Dis PN-Objective Data - Labs CBC & Chem 7: 06/23/16 06:39 06/26/16 11:57 Labs: Laboratory Results - last 24 hr 06/27/16 08:00 ESR >= 130 H Cultures: Cultures 06/19/16 11:21 Blood Culture - Final Peripheral Venipuncture No growth. 06/19/16 11:21 Blood Culture - Final Peripheral Venipuncture No growth. 06/23/16 06:39 Blood Culture - Preliminary Peripheral Venipuncture No growth. Serology 06/20/16 Range/Units 16:58 Hepatitis A IgM Ab Nonreactive (Nonreactive) Hep Bs Antigen Nonreactive (Nonreactive) Hep B Core IgM Ab Nonreactive (Nonreactive) Hepatitis C Ab Screen Reactive H (Nonreactive) HIV Ag/Ab Combo Qual Nonreactive (Nonreactive) Exam - Constitutional Vitals: Temp Pulse Resp BP Pulse Ox 98.2 F 97 18 102/70 95 06/27/16 07:53 06/27/16 07:53 06/27/16 07:53 06/27/16 07:53 06/27/16 07:53 General appearance: average body habitus, cooperative, no acute distress - Head Head exam: Present: atraumatic, normal inspection, normocephalic - Eye Eye exam: Present: EOMI, normal appearance, PERRL Pupils: Present: normal accommodation - ENT ENT exam: Present: mucous membranes moist - Neck Neck exam: Present: normal inspection - Respiratory Respiratory exam: Present: CTAB. Absent: rales, respiratory distress, rhonchi, wheezes - Cardiovascular Cardiovascular exam: Present: RRR, +S1, +S2 - GI/Abdominal GI/Abdominal exam: Present: normal bowel sounds, soft. Absent: distended, tenderness Additional comments: Easily-reducible umbilical hernia noted. - Extremities Exam Extremities exam: Present: normal inspection. Absent: joint swelling, pedal edema, tenderness - Back Exam Back exam: Present: vertebral tenderness (mid-thoracic, lower lumbar) - Neurological Exam Neurological exam: Present: alert, oriented X3, no focal deficits - Psychiatric Psychiatric exam: Present: normal affect, normal mood - Skin Skin exam: Present: dry, intact, normal color, warm - Additional findings Additional findings: PICC line noted to the RUE With transparent dressing C/D/I. - VTE Documentation of Mechanical Device: Intermittent pneumatic compression device Consult Discharge Plan - Plan Referrals: NO,PCP [Primary Care Provider] - (Patient will follow up with PCP at the [facility])
--- NOTE | 2016-06-27 15:40 | Discharge Summary ---
Date of Encounter: 06/27/16 Time of Encounter: 09:00 - Discharge Diagnosis (1) MSSA (methicillin susceptible Staphylococcus aureus) septicemia Priority: Primary Status: Acute (2) Discitis of thoracic region Priority: Primary Status: Acute (3) Osteomyelitis Priority: Primary Status: Acute Qualifiers: Osteomyelitis type: acute hematogenous Osteomyelitis location: other site Qualified Code(s): M86.08 - Acute hematogenous osteomyelitis, other sites (4) Spinal stenosis at L4-L5 level Priority: Secondary Status: Chronic (5) Hepatitis C antibody positive in blood Priority: Secondary Status: Acute (6) Chronic pain disorder Priority: Secondary Status: Chronic - Discharge Medications Prescriptions: OxyCODONE Immed Rel [Roxicodone 15 MG] 15 mg PO Q6HR PRN #6 tablet PRN Reason: Severe Pain OxyCODONE ER (12 HR) [OxyCONTIN] 40 mg PO Q12HR #4 tab.er.12h Cefazolin Sodium/Dextrose,Iso [Cefazolin-Dextrose 2 gm/100 ml] 2 gm IV Q8H #1 froz.piggy Home Medications: Cefazolin Sodium/Dextrose,Iso [Cefazolin-Dextrose 2 gm/100 ml] 2 gm IV Q8H #1 froz.pigkendall 06/27/16 [Rx] Cyclobenzaprine [Flexeril] 10 mg PO TID tablet 06/27/16 [Rx] Duloxetine [Cymbalta] 30 mg PO DAILY capsule. 06/27/16 [Rx] Ibuprofen [Motrin] 600 mg PO Q6HR PRN #0 tablet 06/27/16 [Rx] OxyCODONE ER (12 HR) [OxyCONTIN] 40 mg PO Q12HR #4 tab.er.12h 06/27/16 [Rx] OxyCODONE Immed Rel [Roxicodone 15 MG] 15 mg PO Q6HR PRN #6 tablet 06/27/16 [Rx] Pregabalin [Lyrica] 50 mg PO TID capsule 06/27/16 [Rx] Allergies/Adverse Reactions: Allergies Erythromycin Base Allergy (Verified 06/18/16 10:19) Hives Date of admission: 06/18/16 14:33 Primary care physician: PCP NO Consults: 06/18/16 15:05 Consult to Nutrition [CONS] Routine Comment: Consulting Provider: NUTRITION Reason for Dietary Consult: MST Score 06/18/16 17:33 Consult to Infectious Diseases [CONS] Routine Consulting Provider: Infectious Disease [place] Reason for Consult: discitis/osteomyelitis Call Completed: Yes 06/19/16 12:19 Consult to Associate Automation Engineer [CONS] Routine Reason for SW Consult: IV RUSSELL upon discharge, discharge planning 06/19/16 12:21 Consult to Invasive Line Access Team [CONS] Routine Reason for Consult: Picc Line Insertion 6 weeks of IV ATB to place when bactremia improved. Line Type: PICC 06/21/16 14:16 Consult to Invasive Line Access Team [CONS] Routine Reason for Consult: Picc Line Insertion Line Type: PICC PICC line indications: oysterman Med/Antibiotic Time Notified: 14:16 Call Completed: Yes Discharging clinician: Kurt Lugo Anticipated date of discharge: 06/27/16 - Patient Status Disposition: Transfer Short-Term Hosp Condition: Fair Functional capacity at discharge: independent ambulation Overall status at discharge: patient is progressing back to baseline - Discharge Instructions Follow Up With: NO,PCP [Primary Care Provider] - (Patient will follow up with PCP at the [facility]) - Diet and Activity Activity: as per physical therapy Diet: regular diet Hospital course: Mr. Tucker is a 51 year old male with hx of IVDU presented to ED on 06/18 with complaints of mid back pain, fever and chillis. Tylenol did not help. In ED he had CT of chest/abdomen and pelvis which revealed discitis and osteomyelitis of T5-6 area. He was subsequently admitted. Mr. Tucker was admitted to [facility]. He was evaluated by spine surgery and MRI performed to confirm diagnosis and r/o abscess. MRI did show some early abscess in the region. Blood cx returned with staph species and biopsy was postponed as organism known. He was started on IV abx and seen by ID service. Inflammatory markers were markedly elevated as well. Blood cx returned as MSSA. He underwent YANELI which was negative for endocarditis. He was switched to Cefazolin 2g IV q8h. He tolerated this regimen and arrangements were made for discharge to a facility to complete IV abx therapy. PICC line was placed when blood cx were negative. He had issues with pain control and was on PO Oxy IR. IV Dilaudid restarted during a night due to pain. Today he was changed to long acting oxycodone to try to get better pain control over time while completing abx therapy. On 06/27/16 he was afebrile with stable vitals. At that time he was felt ready for d/c to LTACH. - Time Spent with Patient Total time spent providing and/or coordinating discharge services: 44min - Constitutional Vitals: Temp Pulse Resp BP Pulse Ox 98.2 F 97 18 102/70 95 06/27/16 07:53 06/27/16 07:53 06/27/16 07:53 06/27/16 07:53 06/27/16 07:53 General appearance: Present: cooperative, disheveled, A&O X 3, pleasant, answers questions appropriately - Head Head exam: Present: normocephalic - Eye Eye exam: Present: EOMI, conjuntiva pink - ENT ENT exam: Present: mucous membranes moist - Respiratory Respiratory exam: Present: decreased breath sounds, CTAB. Absent: rhonchi, wheezes - Cardiovascular Cardiovascular exam: Present: RRR. Absent: systolic murmur, tachycardia - GI/Abdominal GI/Abdominal exam: Present: soft. Absent: tenderness - Extremities Exam Extremities exam: Present: warm. Absent: joint swelling, pedal edema - Neurological Exam Neurological exam: Present: alert, oriented X3, no focal deficits - Psychiatric Psychiatric exam: Present: normal affect, normal mood - Skin Skin exam: Present: dry, warm. Absent: rash - VTE Documentation of Mechanical Device: Intermittent pneumatic compression device
--- NOTE | 2016-06-27 15:57 | Physician Discharge Referral ---
[facility] Referral Info Transfer To: [facility] Provider in Charge: Kurt Lugo DO Provider in Charge after Transfer: PCP - Diagnosis (1) MSSA (methicillin susceptible Staphylococcus aureus) septicemia Priority: Primary Status: Acute (2) Discitis of thoracic region Priority: Primary Status: Acute (3) Osteomyelitis Priority: Primary Status: Acute (4) Spinal stenosis at L4-L5 level Priority: Secondary Status: Chronic (5) Hepatitis C antibody positive in blood Priority: Secondary Status: Acute (6) Chronic pain disorder Priority: Secondary Status: Chronic Prognosis: Fair Aware of Diagnosis: Patient Aware of Prognosis: Patient - Transfer Medications Prescriptions: OxyCODONE Immed Rel [Roxicodone 15 MG] 15 mg PO Q6HR PRN #6 tablet PRN Reason: Severe Pain OxyCODONE ER (12 HR) [OxyCONTIN] 40 mg PO Q12HR #4 tab.er.12h Cefazolin Sodium/Dextrose,Iso [Cefazolin-Dextrose 2 gm/100 ml] 2 gm IV Q8H #1 froz.piggy Home Medications: Cefazolin Sodium/Dextrose,Iso [Cefazolin-Dextrose 2 gm/100 ml] 2 gm IV Q8H #1 froz.pigkendall 06/27/16 [Rx] Cyclobenzaprine [Flexeril] 10 mg PO TID tablet 06/27/16 [Rx] Duloxetine [Cymbalta] 30 mg PO DAILY capsule. 06/27/16 [Rx] Ibuprofen [Motrin] 600 mg PO Q6HR PRN #0 tablet 06/27/16 [Rx] OxyCODONE ER (12 HR) [OxyCONTIN] 40 mg PO Q12HR #4 tab.er.12h 06/27/16 [Rx] OxyCODONE Immed Rel [Roxicodone 15 MG] 15 mg PO Q6HR PRN #6 tablet 06/27/16 [Rx] Pregabalin [Lyrica] 50 mg PO TID capsule 06/27/16 [Rx] Allergies/Adverse Reactions: Allergies Erythromycin Base Allergy (Verified 06/18/16 10:19) Hives - Respiratory Orders Smoking Cessation: Smoking cessation has been advised. For more information, call the [employer] Tobacco Quit Line at 7-181-CZYV-NOW. - Ancillary Orders May use pressure relief devices daily prn - Advance Directives Code Status: Full Code - Mobility Orders Ambulate - Rehabiliation Orders Rehab Potential: Fair Rehab Orders: Evaluation for Physical Therapy, Evaluation for Occupational Therapy - Treatments Skin tear care topically daily PRN per policy, May check for fecal impaction rectally daily PRN, Fleet enema rectally every other day PRN cleansing purposes - Diet Orders Regular CERTIFICATION: I certify that the transfer of the above named patient to an Extended Care Facility is necessary for the continuing treatment of the diagnosis listed. The above information is true and accurate reflection of patient's current condition. Confidential - Redisclosure prohibited without a patient's written consent.
== END 2016-06-27 17:16 | DRG 720 ==
LOC: 3NENU 10:16 → EMEROO 10:16 → 3NENU 14:23 → SUATTDRO 14:33 → 2ANU 06-22 12:55
PROVIDERS: ADMIT Internal Medicine; ATTEND Internal Medicine

== ENCOUNTER 2016-11-16 23:26 | Inpatient (IN) ==
--- NOTE | 2016-11-16 23:50 | Emergency Department Note ---
Disposition Clinical Impression: Osteomyelitis Qualifiers: Osteomyelitis type: subacute Osteomyelitis location: unspecified site Qualified Code(s): M86.20 - Subacute osteomyelitis, unspecified site Disposition: Admitted As Inpatient Condition: Good Time of Disposition: 02:33 General Adult HPI - General Chief complaint: ED Back Pain/Injury Stated complaint: back pain Time Seen by Provider: 11/16/16 23:44 Source: patient Limitations: no limitations Nursing Notes Reviewed: Yes Vital Signs Reviewed: Yes - History of Present Illness HPI Narrative: Several month history of upper back pain. Does have a history of osteomyelitis. Has had to leave several times AMA due to social issues. Is requesting to be treated for this at this time. Chest pain but states that he is unsure if this is his heart or his back that is causing the pain. It is left -sided. Denies any shortness of breath. Denies fevers or chills. Denies nausea vomiting or diarrhea. Denies any numbness or tingling to his extremities. Pain Scale: 10 - Related Data Home Medications Medication Instructions Recorded Confirmed No Known Home Drugs 11/08/16 11/08/16 Allergies Allergy/AdvReac Type Severity Reaction Status Date / Time Erythromycin Base Allergy Hives Verified 11/08/16 19:28 latex Allergy Rash Verified 11/08/16 19:28 All systems ED: reviewed and negative except as stated. Constitutional: Denies: fever, chills Eyes: Denies: vision change ENT ED: Denies: congestion Cardiovascular: Reports: chest pain. Denies: palpitations, syncope Respiratory: Denies: cough, dyspnea, sputum production Gastrointestinal: Denies: abdominal pain, nausea, vomiting, diarrhea Genitourinary: Denies: urgency, dysuria, frequency, hematuria Musculoskeletal: Reports: back pain. Denies: neck pain, joint swelling Integumentary: Denies: rash, abrasion, lesions Neurological: Denies: headache, weakness, numbness, paresthesias, abnormal gait , vertigo Psychiatric: Denies: anxiety Past Medical History - Past Medical History Medical history: Reports: asthma, COPD Surgical history: Reports: orthopedic, other Psychiatric history: Reports: no psych history - Social History Smoking Status: Current every day smoker Smokeless Tobacco Status: No Alcohol use: Reports: none Drug use: Reports: none Physical Exam - General Limitations: no limitations General appearance: alert, in no apparent distress - Head Head exam: atraumatic, normocephalic, normal inspection - Eye Eye exam: Present: normal appearance, PERRL, EOMI. Absent: scleral icterus - ENT ENT exam: normal exam, normal oropharynx, mucous membranes moist - Neck Neck exam: Present: normal inspection, full ROM, trachea midline. Absent: tenderness, meningismus, lymphadenopathy - Chest Chest inspection: Present: normal inspection, symmetric chest wall rise. Absent : tenderness - Respiratory Respiratory exam: Present: normal lung sounds bilaterally. Absent: respiratory distress - Cardiovascular Cardiovascular exam: Present: regular rate, normal rhythm, normal heart sounds - Abdominal Exam Abdominal exam: Present: soft, Non-Tender. Absent: tenderness, distention, guarding, rebound, rigidity, normal bowel sounds, organomegaly, Dietrich's sign, Rovsing's sign, tenderness at McBurney's Point - Extremities Exam Extremities exam: Present: normal inspection, full ROM, normal capillary refill. Absent: tenderness, pedal edema - Back Exam Back exam: Present: full ROM, tenderness (To palpation of T3-T5 area.) - Neurological Exam Neurological exam: Present: alert, oriented X3 - Psychiatric Psychiatric exam: Present: normal affect, normal mood - Skin Skin exam: Present: warm, dry, intact, normal color. Absent: rash, cyanosis, diaphoresis, erythema Course Course Narrative: Well appearing male patient ambulating to the room without difficulty. Patient states he has a history of osteomyelitis however he has had Aleve without treatment several times from the hospital due to social issues. He states that currently his is in a safe place and that he can seek treatment at this time. He is agreeable to admission. He has a recent MRI on November 08 that shows osteomyelitis and no epidural abscess noted. He denies any fevers or chills. He does report upper back pain. He denies any numbness or tingling to his extremities he denies any difficulty ambulating. He denies any saddle anesthesias or paresthesias. He denies symptoms of incontinence. Patient states that his been treated for this previously and may however the pain returned. The patient is alert and oriented 3 this time. He does have pain to palpation of his upper back area around T3-T5. He denies any fevers or chills. He denies any nausea vomiting or diarrhea. He does report some left- sided chest pain that he is unaware if this is his chest or his back is causing the pain. We will place patient on antibiotics get a basic lab workup and blood cultures admit patient to hospital. He is agreeable to this. - Consultations Consultation #1: Dr White accepted Pt in stable condition. We have added Zosyn at his request. Time: 00:32 Vital Signs Temperature 98.2 F 11/16/16 23:28 Pulse Rate 93 11/16/16 23:28 Respiratory Rate 18 11/16/16 23:28 Blood Pressure 156/102 11/16/16 23:28 O2 Sat by Pulse Oximetry 95 11/16/16 23:28 Temperature 97.6 F 11/17/16 02:12 Pulse Rate 63 11/17/16 02:12 Respiratory Rate 16 11/17/16 02:12 Blood Pressure 135/90 11/17/16 02:12 O2 Sat by Pulse Oximetry 98 11/17/16 02:12 Oxygen Delivery Oxygen Delivery Room Air Medical Decision Making - Medical Records Medical records reviewed: Yes I reviewed the patient's medical records. - Lab Data Lab results reviewed: Yes I reviewed the patient's lab results. Result diagrams: 11/17/16 00:54 11/17/16 00:54 Lab Results 11/17/16 11/17/16 11/17/16 Range/Units 00:54 00:54 00:54 WBC 9.5 (4.3-11.1) K/mcL RBC 4.66 (4.19-5.50) M/mcL Hgb 13.4 (12.9-16.9) g/dL Hct 40.2 (37.5-50.1) % MCV 86.3 (83.0-100.0) fL MCH 28.8 (28.0-33.3) pg MCHC 33.3 (31.6-35.5) g/dL RDW 13.5 (11.5-14.5) % Plt Count 223 (140-400) K/mcL MPV 9.9 (9.4-12.4) fL Immature Gran % 0.4 (0-4) % Seg Neutrophils % 55.3 % Lymphocytes % 32.2 % Monocytes % 9.0 % Eosinophils % 2.5 % Basophils % 0.6 % Neutrophils # 5.2 (1.6-8.9) K/mcL Lymphocytes # 3.1 (0.6-4.6) K/mcL Monocytes # 0.9 (0.0-1.3) K/mcL Eosinophils # 0.2 (0.0-0.6) K/mcL Basophils # 0.1 (0.0-0.2) K/mcL Sodium 138 (136-145) mEq/L Potassium 3.6 (3.5-4.5) mEq/L Chloride 107 (98-109) mEq/L Carbon Dioxide 23 (19-29) mEq/L BUN 14 (8-26) mg/dL Creatinine 0.85 (0.72-1.25) mg/dL Est GFR ( Amer) > 60 (> 60) Est GFR (Non-Af Amer) > 60 (> 60) BUN/Creatinine Ratio 16 (6-26) Glucose 73 (70-99) mg/dL Calculated Osmolality 285 (280-300) Lactic Acid (0.5-2.2) mmol/L Calcium 8.9 (8.6-10.8) mg/dL Troponin I 0.00 (0-0.03) ng/mL 11/17/16 Range/Units 00:54 WBC (4.3-11.1) K/mcL RBC (4.19-5.50) M/mcL Hgb (12.9-16.9) g/dL Hct (37.5-50.1) % MCV (83.0-100.0) fL MCH (28.0-33.3) pg MCHC (31.6-35.5) g/dL RDW (11.5-14.5) % Plt Count (140-400) K/mcL MPV (9.4-12.4) fL Immature Gran % (0-4) % Seg Neutrophils % % Lymphocytes % % Monocytes % % Eosinophils % % Basophils % % Neutrophils # (1.6-8.9) K/mcL Lymphocytes # (0.6-4.6) K/mcL Monocytes # (0.0-1.3) K/mcL Eosinophils # (0.0-0.6) K/mcL Basophils # (0.0-0.2) K/mcL Sodium (136-145) mEq/L Potassium (3.5-4.5) mEq/L Chloride (98-109) mEq/L Carbon Dioxide (19-29) mEq/L BUN (8-26) mg/dL Creatinine (0.72-1.25) mg/dL Est GFR ( Amer) (> 60) Est GFR (Non-Af Amer) (> 60) BUN/Creatinine Ratio (6-26) Glucose (70-99) mg/dL Calculated Osmolality (280-300) Lactic Acid 0.7 (0.5-2.2) mmol/L Calcium (8.6-10.8) mg/dL Troponin I (0-0.03) ng/mL - Radiology Data Radiology results reviewed: Yes I reviewed the patient's radiology results. Chest X-Ray 11/17/16 00:04 IMPRESSION: No acute disease. D/ / Elsie Mejia Cha, MD / Elsie Mejia Cha, MD Interpreting Provider: Elsie Mejia Cha, MD - EKG Data EKG #1 EKG attestation: Yes I reviewed and interpreted this EKG. EKG results narrative: Normal sinus rhythm at a rate of 76. NM interval is 119. QRS duration is 95. QT is 343. QTC is 374. No signs of ischemia. No previous EKGs to compare to. Attestation Statement - Attestation Attestation: I, Nahid Quispe MD, personally evaluated this patient and discussed their management with the resident physician. I reviewed the resident's note and agree with the documented findings, medical decision making, and plan of care. 51-year-old male presents to the emergency department with a complaint of increased back pain secondary to spinal osteomyelitis. Patient has had this problem with infection in his spine for at least the past 6 months. He was seen here about 4 weeks ago and had an MRI but refused admission at that time. He returned about a week ago and had an MRI which showed worsening osteomyelitis and discitis of the thoracic spine. He again refused to be admitted to advanced surgical hospital because of persistent increasing back pain and is willing to be admitted. No neurological symptoms. No new numbness tingling or weakness. On examination patient is a well-developed well-nourished male in no acute distress. He is alert and oriented 3. There is no cyanosis or diaphoresis. Breath sounds are clear and equal bilaterally. Heart regular rate and rhythm. Abdomen is soft and nontender with normal bowel sounds. Labs reviewed. The hospitalist, Dr. White, was consulted and accepted admission of the patient.
[2016-11-17] MEDS ORDERED: *HR* HYDROmorphone (PF) 1 MG/ML SYRINGE IM ONE (00:03)
[2016-11-17] MEDS ORDERED: Vancomycin 1,000 MG in D5% in Water 250 ML IVPB ONE (00:06)
[2016-11-17] MEDS ORDERED: Piperacillin/Tazobactam 3.375 GM in D5% in Water (Mini-Bag+) 100 ML IVPB ONE (00:29)
[2016-11-17 01:01] LABS: Basophils # 0.1 K/mcL (0.0-0.2); Basophils % 0.6 %; Eosinophils # 0.2 K/mcL (0.0-0.6); Eosinophils % 2.5 %; Hematocrit 40.2 % (37.5-50.1); Hemoglobin 13.4 g/dL (12.9-16.9); Immature Granulocytes % 0.4 % (0-4); Lymphocytes # 3.1 K/mcL (0.6-4.6); Lymphocytes % 32.2 %; Mean Corpuscular HGB Conc 33.3 g/dL (31.6-35.5); Mean Corpuscular Hemoglobin 28.8 pg (28.0-33.3); Mean Corpuscular Volume 86.3 fL (83.0-100.0); Mean Platelet Volume 9.9 fL (9.4-12.4); Monocytes # 0.9 K/mcL (0.0-1.3); Neutrophils # 5.2 K/mcL (1.6-8.9); Platelet Count 223 K/mcL (140-400); Red Blood Count 4.66 M/mcL (4.19-5.50); Red Cell Distribution Width 13.5 % (11.5-14.5); Segmented Neutrophils % 55.3 %
[2016-11-17 01:15] LABS: BUN/Creatinine Ratio 16 (6-26); Blood Urea Nitrogen 14 mg/dL (8-26); Calcium 8.9 mg/dL (8.6-10.8); Carbon Dioxide 23 mEq/L (19-29); Chloride 107 mEq/L (98-109); Glucose 73 mg/dL (70-99); Osmolality,Calculated 285 (280-300); Potassium 3.6 mEq/L (3.5-4.5); Sodium 138 mEq/L (136-145); eGFR For African Americans > 60 (> 60); eGFR For Non-African Americans > 60 (> 60)
[2016-11-17] MEDS ORDERED: *HR* HYDROmorphone (PF) 1 MG/ML SYRINGE IVP ONE (01:48)
[2016-11-17] MEDS ORDERED: Ondansetron 4 MG/2 ML VIAL IVP ONE (01:48)
[2016-11-17] MEDS ORDERED: Naloxone 0.4 MG/ML INJ IVP PRN (03:03)
[2016-11-17] MEDS ORDERED: Ondansetron 4 MG/2 ML VIAL IVP PRN (03:03)
[2016-11-17] MEDS ORDERED: Acetaminophen 325 MG TABLET PO PRN (03:03)
--- NOTE | 2016-11-17 03:06 | Internal Med History&Physical ---
Addendum entered and electronically signed by Beto Chapman DO 11/17/16 04:44: Physical Exam General appearance: A&Ox3, NAD. Head: AT, NC. Eyes: EOMI, PERRL Throat: oral mucosa moist. Neck: supple, no lymphoadenopathy noted. Heart: RRR, no murmurs, gallops or rubs. Lungs: CTAB, no rhonchi, rales or wheezes, Abd: soft, normal bowel sounds, non-tender. Back: Tenderness to palpation at T5-T6 level. Neuro: CN II-XII are grossly intact, strength 5+ and symmetrical for bilateral upper and lower extremities, no significant sensory or motor deficit noted. Reflex: 2+ for bilateral biceps and brachioradialis, 3+ bilateral knee, negative Babinski. Skin: intact, warm. Patient may need bone biopsy for culture through IR if it's determined that surgery is not indicated. Original Note: <Beto Chapman - Last Filed: 11/17/16 03:59> Date of Encounter: 11/17/16 Time of Encounter: 02:10 Assessment and Plan (1) Osteomyelitis of thoracic spine Current visit: Yes Status: Acute - Patient presented with worsening thoracic back pain but no significant neuro deficits. - Spine MRI from 11/08/16 found worsening thoracic back pain and MRI spine MRI at that time found worsening T4-5, T5-6, and T6-7 discitis osteomyelitis with further collapse of the T5 and T6 vertebral bodies and increased ventral prominent epidural phlegmon resulting in severe spinal canal stenosis at the T5- 6 level in conjunction with underlying disc bulge. - Previously treated as MSSA osteomyelitis with 6-week course of IV Cefazolin earlier this year. - Blood cultures pending. May consider echo if blood cultures come back positive. - Will repeat thoracic spine MRI with/without contrast for further evaluation. - Continue IV vancomycin and Zosyn (for polymicrobial coverage given patient's IVDU history). - Prn narcotic for pain control. - Will consult spine surgery and appreciate further evaluation and possible surgical intervention. NPO now. - Will consult infectious disease and appreciate further evaluation and recommendations. - Admit to hospital for close monitoring. Patient is considered high risk given the potential bad outcomes (paralysis, permanent disability) from the thoracic spine osteomyelitis. Time spent on admission: 40 minutes. (2) Tobacco abuse Current visit: Yes Status: Chronic - Smoking cessation counseling. - Nicotine replacement therapy was offered but patient declines. (3) Drug abuse, IV Current visit: No Status: Chronic - Patient reports last illicit drug use was IV heroin 6 months ago. - Will check UDS. (4) Medical non-compliance Current visit: Yes Status: Acute - With multiple left AMA in ED. (5) DVT prophylaxis Current visit: Yes Status: Acute - SQ heparin. Internal Medicine - H&P: HPI Chief complaint: Worsening throacic back pain Admitted From: Emergency Dept Plans for Post Hospital Care: Home History of present illness: Mr. Bean is a 51 year old male with PMH of IVDU and hospitalization on for T5-T6 discitis/osteomyelitis s/p 6 weeks of IV cefazolin therapy. Patient initially came back to [place] ED on 10/20/16 for thoracic back pain and spine MRI at that time found worsening T5-6 discitis osteomyelitis with findings of T4 and T7 early osteomyelitis. Patient was recommended to be admitted and he left ED AGAINST MEDICAL ADVICE. Patient returned to [place] ED again on 11/08/16 for worsening thoracic back pain and MRI spine MRI at that time found worsening T4-5, T5-6, and T6-7 discitis osteomyelitis with further collapse of the T5 and T6 vertebral bodies and increased ventral prominent epidural phlegmon resulting in severe spinal canal stenosis at the T5-6 level in conjunction with underlying disc bulge. Patient refused admission recommendation again and left AMA even after ED physician had lengthy discussion with patient about the risk including potential permanent disability , paralysis, or from the infection. Patient came back to [place] ED last night for worsening thoracic back pain and this time agreed to be admitted. Patient describes the pain as stabbing & shooting pain radiating from the mid thoracic back via rib to the anterior chest. It's aggravated by deep breath or cough. Other associated symptoms include chills, cough and occasional right hand numbness. Patient denies shortness of breath, fever, focal weakness, numbness/tingling of lower extremity, incontinence. Patient reports last illicit drug use was IV heroin 6 months ago. Patient states he left AMA before is because he needed to take care of his . And as his now is in safe environment, he wants to get treated for his infection. Patient is full code. In ED, blood cultures were collected and IV vancomycin & Zosyn were initiated. Past Med Surg Social Fam HX - Past Medical History Medical history: asthma, COPD Psychiatric history: no psych history - Past Surgical History Surgical History: orthopedic, other - Social History Smoking Status: Current every day smoker Smokeless Tobacco Status: No Alcohol use: none Drug use: none - Family History Mother Living Status: Still Living Hx Family Cardiac Disorders: No Hx Family Respiratory Disorders: No Hx Family Cancer: No Hx Family GI Disorders: No Hx Family Endocrine Disorder: No Hx Family Neuromuscular Disorders: No Hx Family Neurologic Disorders: No Hx Family HEENT Disorders: No Hx Family Autoimmune Disorders: No Father Name: michelle bean Living Status: Cause of : [place] Hx Family Cardiac Disorders: Yes Internal Medicine - H&P: Meds No Known Home Drugs 11/08/16 [History] Erythromycin Base Allergy (Verified 11/08/16 19:28) Hives latex Allergy (Verified 11/08/16 19:28) Rash All Systems PM: A 10-system review of systems was performed and is negative for pertinent findings except as documented above in the HPI. - Constitutional Constitutional: chills, weight gain (30 lbs over past few months), no fever(s) - EENT Eyes: no change in vision Ears: no decreased hearing Nose, mouth and throat: no dysphagia, no odynophagia - Cardiovascular Cardiovascular ROS IM: no edema, no palpitations, no syncope - Respiratory Respiratory: cough, no dyspnea, no hemoptysis, no excessive phlegm production - Constitutional Vitals: Temp Pulse Resp BP Pulse Ox 97.6 F 63 16 135/90 98 11/17/16 02:12 11/17/16 02:12 11/17/16 02:12 11/17/16 02:12 11/17/16 02:12 Internal Med - H&P Results - Labs CBC & Chem 7: 11/17/16 00:54 11/17/16 00:54 Labs: Short CBC 11/17/16 Range/Units 00:54 WBC 9.5 (4.3-11.1) K/mcL Hgb 13.4 (12.9-16.9) g/dL Hct 40.2 (37.5-50.1) % Plt Count 223 (140-400) K/mcL Neutrophils # 5.2 (1.6-8.9) K/mcL BMP 11/17/16 00:54 Sodium 138 Potassium 3.6 Chloride 107 Carbon Dioxide 23 BUN 14 Creatinine 0.85 Glucose 73 Calcium 8.9 Cardiac Enzymes 11/17/16 Range/Units 00:54 Troponin I 0.00 (0-0.03) ng/mL - EKG Data Prior EKG available for review: yes When compared to previous EKG: there is no significant change Interpretation IM: normal EKG <Bairon White - Last Filed: 11/17/16 05:15> Date of Encounter: 11/17/16 Time of Encounter: 04:30 - Constitutional Constitutional: chills, night sweats, no fever(s) - EENT Eyes: no blurry vision, no change in vision Nose, mouth and throat: no nasal congestion, no sinus pressure, no sore throat - Cardiovascular Cardiovascular ROS IM: no chest pain, no dyspnea, no dyspnea on exertion - Respiratory Respiratory: cough, no hemoptysis - Gastrointestinal Gastrointestinal: no abdominal pain, no diarrhea, no fecal incontinence, no hematemesis, no hematochezia, no melena, no nausea, no vomiting - Genitourinary Genitourinary ROS male: no dysuria, no flank pain, no urinary incontinence - Musculoskeletal Musculoskeletal ROS IM: back pain, no arthralgias, no neck pain, no numbness - Integumentary Integumentary IM: no rash, no jaundice - Neurological Neurological ROS: no focal weakness, no frequent falls, no headache(s), no weakness - Psychiatric Psychiatric: no anxiety, no depression - Endocrine Endocrine IM: fatigue, no polydipsia, no polyuria - Hematologic/Lymphatic Hematologic/Lymphatic: no easy bruising, no lymphadenopathy - Allergic/Immunologic Allergic/Immunologic: no GI upset with certain foods - Constitutional Vitals: Temp Pulse Resp BP Pulse Ox 97.6 F 63 16 135/90 98 11/17/16 02:12 11/17/16 02:12 11/17/16 02:12 11/17/16 02:12 11/17/16 02:12 General appearance: Present: A&O X 3, no acute distress, answers questions appropriately - Head Head exam: Present: atraumatic, normal inspection - Eye Eye exam: Present: EOMI, normal appearance, PERRL. Absent: scleral icterus Pupils: Present: normal accommodation - ENT ENT exam: Present: mucous membranes moist, normal exam - Neck Neck exam general surgery: Present: full ROM, supple. Absent: lymphadenopathy, tenderness, nuchal rigidity - Respiratory Respiratory exam: Present: CTAB. Absent: chest wall tenderness, rales, rhonchi , wheezes - Cardiovascular Cardiovascular exam: Present: RRR, +S1, +S2. Absent: diastolic murmur, systolic murmur - GI/Abdominal GI/Abdominal exam: Present: normal bowel sounds, soft. Absent: hepatomegaly, mass, splenomegaly, tenderness - Extremities Exam Extremities exam: Present: full ROM, warm. Absent: joint swelling, pedal edema - Back Exam Back exam: Present: tenderness (mild to moderate pain reproduced by palpation along thoracic spine ). Absent: CVA tenderness (L), CVA tenderness (R) - Neurological Exam Neurological exam: Present: alert, CN II-XII intact, oriented X3, reflexes normal, no focal deficits, strengths equal and symetr throughout - Psychiatric Psychiatric exam: Present: normal affect, normal mood - Skin Skin exam: Present: dry, warm. Absent: rash Internal Med - H&P Results - Labs CBC & Chem 7: 11/17/16 00:54 11/17/16 00:54 Labs: Short CBC 11/17/16 Range/Units 00:54 WBC 9.5 (4.3-11.1) K/mcL Hgb 13.4 (12.9-16.9) g/dL Hct 40.2 (37.5-50.1) % Plt Count 223 (140-400) K/mcL Neutrophils # 5.2 (1.6-8.9) K/mcL BMP 11/17/16 00:54 Sodium 138 Potassium 3.6 Chloride 107 Carbon Dioxide 23 BUN 14 Creatinine 0.85 Glucose 73 Calcium 8.9 Cardiac Enzymes 11/17/16 Range/Units 00:54 Troponin I 0.00 (0-0.03) ng/mL - EKG Data -: EKG Interpreted by Myself - EKG Data EKG comments: 11/17/16 05:06 NSR; no acute changes - Diagnostic Studies Chest x-ray Status: image reviewed by me (negative) Other Images Additional comments: MRI spine results reviewed from 11/08/16 study - Attending Attestation I discussed the patient PLATINUM, PMH, ROS, lab data, and exam findings with Dr. Chapman. I reviewed his most recent spine MRI reports from 11/08/16. I then saw and examined patient independently as well. Patient has completed a 6 week course of IV antibiotics at an LTAC in [place] in early August. Treatment was based on blood culture + for MSSA. He has since developed worsening back pain since then with MRI evidence of osteomyeltitis and discitis. He left the ER AMA twice in the last month and now agrees to stay to seek treatment. Although he has no neurologic deficits presently, I am concerned he may need surgical intervention. If surgery is not necessary, he likely needs a bone biopsy for culture through IR. I agree with antibiotic choices. I also recommend repeat thoracic MRI and spine surgery consultation. As I talked with the patient, he was quite nervous and anxious. I recommended he stay for diagnostic work up and possible surgical intervention if necessary. He agreed to stay, but I am concerned he will again leave AMA. I counseled him on the need to comply with medical care as he risks suffering from paralysis in the event he develops spinal cord compression. Other than my comments above and noted exam findings, I agree with Dr. Chapman's assessment and plan.
[2016-11-17] MEDS ORDERED: Vancomycin 1,250 MG in D5% in Water 250 ML IVPB SCH ×3 (04:00→15:00)
[2016-11-17] MEDS: *HR* Morphine 2 MG/ML SYRINGE IVP PRN ×3 (04:40→13:32)
[2016-11-17] MEDS: *HR* Heparin 5,000 UNIT/ML VIAL SQ SCH ×2 (05:38→13:32)
[2016-11-17 06:01] LABS: Basophils # 0.1 K/mcL (0.0-0.2); Basophils % 0.6 %; Eosinophils # 0.2 K/mcL (0.0-0.6); Eosinophils % 2.9 %; Hematocrit 41.1 % (37.5-50.1); Hemoglobin 13.6 g/dL (12.9-16.9); Immature Granulocytes % 0.1 % (0-4); Lymphocytes # 2.9 K/mcL (0.6-4.6); Lymphocytes % 36.5 %; Mean Corpuscular HGB Conc 33.1 g/dL (31.6-35.5); Mean Corpuscular Hemoglobin 28.6 pg (28.0-33.3); Mean Corpuscular Volume 86.3 fL (83.0-100.0); Mean Platelet Volume 9.9 fL (9.4-12.4); Monocytes # 0.7 K/mcL (0.0-1.3); Monocytes % 9.4 %; Platelet Count 208 K/mcL (140-400); Red Blood Count 4.76 M/mcL (4.19-5.50); Red Cell Distribution Width 13.5 % (11.5-14.5); Segmented Neutrophils % 50.5 %
[2016-11-17 06:10] LABS: INR 1.1
[2016-11-17 06:13] LABS: Activated Partial Thrombo Time 35.3 Seconds (26.0-36.0)
[2016-11-17 06:17] LABS: BUN/Creatinine Ratio 16 (6-26); Blood Urea Nitrogen 13 mg/dL (8-26); Calcium 8.9 mg/dL (8.6-10.8); Carbon Dioxide 26 mEq/L (19-29); Chloride 105 mEq/L (98-109); Glucose 122 mg/dL (70-99); Osmolality,Calculated 285 (280-300); Potassium 3.3 mEq/L (3.5-4.5); Sodium 137 mEq/L (136-145); eGFR For African Americans > 60 (> 60); eGFR For Non-African Americans > 60 (> 60)
[2016-11-17] MEDS ORDERED: Piperacillin/Tazobactam 3.375 GM in D5% in Water (Mini-Bag+) 100 ML IVPB SCH ×2 (08:00→16:00)
[2016-11-17] MEDS: *HR* HYDROcodone/Acet 5/325 mg TABLET PO PRN ×2 (11:25→15:41)
--- NOTE | 2016-11-17 11:29 | Infectious Disease Consult ---
Date of Encounter: 11/17/16 Time of Encounter: 11:25 Assessment and Plan (1) Osteomyelitis of thoracic spine Status: Chronic Assessment and plan: Location: T4-T7. Causative organism unclear. Previously, patient had MSSA OM/discitis. Not sure if this is recurrence/relapse of previous infection or new infection. MRI of the spine completed 11/08/16 showed worsening of T4-T7 OM with collapse of T5-&t and increased ventral prominent phlegmon resulting in severe spinal canal stenosis at T5-T6 with disc bulge. Check inflammatory markers. Blood cultures drawn and are pending. Dr. Greco consulted. Per the patient, he has recommended transfer to higher acuity hospital for neurosurgery evaluation. The patient has no SIRS critieria. Recommend holding antibiotics until we are able to get cultures. Per the patient, he is being transferred to a high acuity hospital for neurosurgery evaluation. Duration of treatment depends on the clinical picture. (2) Septic arthritis Status: Acute Assessment and plan: Location: L4-L5 and L5-S1. Causative organism unclear. Dr. Greco consulted. Await recommendations. Antibiotic recommendations as above. Pain management per the primary team. Qualifiers: Septic arthritis location: vertebra Septic arthritis organism: due to unspecified organism Qualified Code(s): M46.50 - Other infective spondylopathies, site unspecified (3) Tobacco abuse Status: Chronic (4) Medical non-compliance Status: Acute Assessment and plan: Signed out AMA twice prior to this admission. Infectious Disease HPI - Data of Consult Patient: known to practice within the last 3 years Consult date: 11/17/16 Requesting Physician: Arabella Jennings MD Primary Care Provider: PCP NONE - Consult Narrative Reason for consult: Osteomyelitis Discitis History of present illness: Mr. Bean is a 51 year old male with a past medical history of asthma, COPD , and prior osteomyelitis/discitis of the lumbar spine. The patient was admitted to the hospital 11/16/16 for osteomyelitis/discitis. We are consulted 817 for further evaluation and treatment recommendations regarding osteomyelitis /discitis. The patient is a 51-year-old male with past medical history as stated above. The patient is noted to the infectious disease service as we are consult on his case when he was admitted back in June. At that time, the patient presented with severe back pain. A CT scan revealed osteomyelitis of T5-T6. MRI also showed an early epidural abscess/phlegmon. At that time, our spine surgeon was consulted and decided that the patient did not need surgery. Blood cultures came back +12 sets for MSSA. A transthoracic echocardiogram was completed that was negative. YANELI was attempted, but the patient was unable to be adequately sedated. He was discharged to [facility] on June 27 to complete a six-week course of IV antibiotics. The patient again presented to our emergency department on October 20 with complaints of severe back pain. He underwent an MRI that showed septic arthropathy at L5-S1 and T4-T7 ostial myelitis as well as a ventral epidural abscess at T4-T7. He signed out AMA and came back to the ER again on November 08 with continued pain. Repeat imaging again showed worsening osteomyelitis/discitis of T4-T7 with collapse of T5-C6 and increased ventral prominent epidural phlegmon resulting in severe spinal canal stenosis at T5-T6 with a disc bulge. There is also noted to be septic arthritis at L4-L5 and L5-S1. Again, the patient signed out AMA and he presented back to the emergency department on November 16. At this time, he was agreeable to be admitted to the hospital for further treatment. Upon arrival, the patient was afebrile, but he was mildly tachycardic. Laboratory studies revealed a normal white blood cell count. No inflammatory markers have been ordered. Chest x-ray was negative. The patient was started empirically on IV vancomycin and IV Zosyn and he was admitted to the hospital for further evaluation and treatment. Since admission, the patient has remained afebrile and hemodynamically stable. Repeat laboratory studies this morning again revealed a normal white blood cell count. A thoracic spine MRI has been ordered and is pending. Blood cultures obtained in the emergency department are pending 2 sets. Spine surgery has been consulted. We've been asked to evaluate and make further recommendations. During my exam today, the patient states that he has been having intermittent chills, but no fevers or rigors. He reports a headache at this time and some neck pain, but states this is new since being admitted. He denies weakness or dizziness. He does complain of some nasal congestion and rhinorrhea over the past week. He denies chest pain or shortness of breath, but reports new-onset dry cough since being admitted. He also reports difficulty taking a deep breath due to the pain. He denies any nausea, vomiting, diarrhea, or constipation. He denies urinary complaints. He denies incontinence. He denies numbness, tingling , or pain in his extremities. He denies oral thrush or new skin lesions. He complains of pain in the thoracic spine with radiation to the right paraspinal muscles, worse with movement, cough, or deep inspiration. He complains of chronic, mild lower back pain as well. The patient lives at home with his . He is not employed. He states he has not used IV drugs since he was admitted to the hospital in June. He attends AA and NA meetings multiple times through the week. He denies alcohol or tobacco use. CC: Arabella Jennings MD Past Med Surg Social Fam HX - Past Medical History Attestation: Yes The following information was validated with the patient. Source: patient, old records reviewed, nursing notes reviewed Medical history: asthma, COPD Psychiatric history: no psych history - Past Surgical History Surgical History: orthopedic, other - Social History Smoking Status: Current every day smoker Smokeless Tobacco Status: No Alcohol use: none Drug use: none - Family History Mother Living Status: Still Living Hx Family Cardiac Disorders: No Hx Family Respiratory Disorders: No Hx Family Cancer: No Hx Family GI Disorders: No Hx Family Endocrine Disorder: No Hx Family Neuromuscular Disorders: No Hx Family Neurologic Disorders: No Hx Family HEENT Disorders: No Hx Family Autoimmune Disorders: No Father Name: michelle bean Living Status: Cause of : [place] Hx Family Cardiac Disorders: Yes Infectious Disease-CN:Meds No Known Home Drugs 11/08/16 [History] 3 Allergy/AdvReac Type Severity Reaction Status Date / Time Erythromycin Base Allergy Hives Verified 11/17/16 08:06 latex Allergy Rash Verified 11/17/16 08:06 All systems: reviewed and no additional remarkable complaints except as stated Exam - Constitutional Vitals: Temp Pulse Resp BP Pulse Ox 97.7 F 61 16 117/72 99 11/17/16 07:43 11/17/16 07:43 11/17/16 07:43 11/17/16 07:43 11/17/16 07:43 General appearance: average body habitus, cooperative, no acute distress - Head Head exam: Present: atraumatic, normal inspection, normocephalic - Eye Eye exam: Present: EOMI, normal appearance, PERRL Pupils: Present: normal accommodation Additional comments: No subconjunctival hemorrhage. - ENT ENT exam: Present: mucous membranes moist Additional comments: No subconjunctival hemorrhage noted. - Neck Neck exam: Present: normal inspection - Respiratory Respiratory exam: Present: CTAB. Absent: rales, respiratory distress, rhonchi, wheezes - Cardiovascular Cardiovascular exam: Present: RRR, +S1, +S2 - GI/Abdominal GI/Abdominal exam: Present: normal bowel sounds, soft. Absent: distended, tenderness - Extremities Exam Extremities exam: Present: normal inspection. Absent: joint swelling, pedal edema, tenderness - Back Exam Back exam: Present: normal inspection, paraspinal tenderness (Thoracic spine), vertebral tenderness (Thoracic spine). Absent: full ROM - Neurological Exam Neurological exam: Present: alert, oriented X3, no focal deficits - Psychiatric Psychiatric exam: Present: normal affect, normal mood - Skin Skin exam: Present: dry, intact, normal color, warm Additional comments: No endocarditis stigmata noted. Infectious Disease CN: Results - Labs CBC & Chem 7: 11/17/16 05:50 11/17/16 05:50 Consult Discharge Plan - Plan Referrals: NONE,PCP [Primary Care Provider] - - Attending Attestation I examined this patient and my medical decision-making was reviewed with the Resident Physician. I agree with the documented findings, disposition and treatment plan as described except to the extent set forth below. Patient is a 52-year-old gentleman with history of IV drug use was seen by us in June where he had bacteremia with MSSA seeded the thoracic spine T5-T6 and had questionable early abscess at that time. Patient was seen by spine surgery and recommended no surgical intervention. Patient was treated with IV antibiotics for 6 weeks cefazolin. Patient [facility] Patient came October 20 complaining of worsening back pain, at that time patient was noted to have osteomyelitis of T4-T7 and epidural abscess noted on the MRI. Patient had blood cultures done at that time that were negative. ESR at that time was 112. Patient apparently saw the eye case medical advice he continues to take care of his . Patient comes back on November 08 to the emergency department complaining of back pain again. At that time had a repeat MRI showed worsening of osteomyelitis T4-T7 with collapse of T5-T6. The epidural abscess was causing severe spinal canal stenosis. Patient decided to sign out AMA. Patient came back on 11/16/2016 for workup and evaluation. Since admission patient has been afebrile no leukocytosis no tachycardia and no source criteria. Repeat MRI noted. Patients physical exam is positive for tenderness over thoracic spine. No murmur no endocarditis stigmata. Patient was given a dose of vancomycin and Zosyn in the emergency department we were asked to evaluate the patient make further recommendations at. Next At this point patient has no source criteria, recommend holding antibiotics until he goes into surgery to get better specimen and cultures. This patient might need to be transferred to [place] for aggressive surgical debridement. Prognosis overall guarded. Check baseline labs, blood cultures, inflammatory markers.
--- NOTE | 2016-11-17 11:44 | Discharge Summary ---
<Kathryn Bernal - Last Filed: 11/17/16 11:57> Date of Encounter: 11/17/16 Time of Encounter: 11:41 - Discharge Diagnosis (1) Osteomyelitis of thoracic spine Priority: Primary Status: Acute (2) Tobacco abuse Priority: Secondary Status: Chronic (3) Medical non-compliance Priority: Primary Status: Acute (4) Drug abuse, IV Priority: Primary Status: Chronic - Discharge Medications Home Medications: No Known Home Drugs 11/08/16 [History] Allergies/Adverse Reactions: 3 Allergy/AdvReac Type Severity Reaction Status Date / Time Erythromycin Base Allergy Hives Verified 11/17/16 08:06 latex Allergy Rash Verified 11/17/16 08:06 Date of admission: 11/17/16 05:37 Primary care physician: PCP NONE Discharging clinician: José Miguel More Anticipated date of discharge: 11/17/16 - Patient Status Disposition: Transfer Other Condition: Good Functional capacity at discharge: independent ambulation Overall status at discharge: patient is not back to baseline - Discharge Instructions Follow Up With: NONE,PCP [Primary Care Provider] - - Diet and Activity Diet: advance to your usual diet Interval History: The patient was evaluated by Dr. Greco. Dr. Greco is unable to treat the patient's injury at this facility and the patient will need to be transferred to [place] for further care. The patient prefers to be transferred to [facility] Transfer Center Called. Hospital course: Mr. Tucker is a 51 year old male with a PMH of IVDU and hospitalization on for T5-T6 discitis/osteomyelitis s/p 6 weeks of IV cefazolin therapy. Patient initially came back to [place] ED on 10/20/16 for thoracic back pain and spine MRI at that time found worsening T5-6 discitis osteomyelitis with findings of T4 and T7 early osteomyelitis. Patient was recommended to be admitted and he left ED AGAINST MEDICAL ADVICE. Patient returned to [place] ED again on 11/08/16 for worsening thoracic back pain and MRI spine MRI at that time found worsening T4-5, T5-6, and T6-7 discitis osteomyelitis with further collapse of the T5 and T6 vertebral bodies and increased ventral prominent epidural phlegmon resulting in severe spinal canal stenosis at the T5-6 level in conjunction with underlying disc bulge. Patient refused admission recommendation again and left A even after ED physician had lengthy discussion with patient about the risk including potential permanent disability , paralysis, or from the infection. Patient came back to [place] ED last night for worsening thoracic back pain and this time agreed to be admitted. Patient describes the pain as stabbing & shooting pain radiating from the mid thoracic back via rib to the anterior chest. It's aggravated by deep breath or cough. Other associated symptoms include chills, cough and occasional right hand numbness. Patient denies shortness of breath, fever, focal weakness, numbness/tingling of lower extremity, incontinence. Patient reports last illicit drug use was IV heroin 6 months ago. Patient states he left AMA before is because he needed to take care of his . And as his now is in safe environment, he wants to get treated for his infection. In ED, blood cultures were collected and IV vancomycin & Zosyn were initiated. ID is evaluating the patient and recommends holding the antibiotics, which are currently held, until all cultures have been obtained. Repeat MRI today shows Overall stable appearance of the thoracic spine with persistent discitis/osteomyelitis at T4-5 , T5-6 and T6-7. Ventral epidural phlegmon persist at the T5-6 level contributing to moderate to severe spinal canal stenosis. No ventral epidural or paraspinal abscess is identified. The patient was evaluated by Dr. Greco. Dr. Greco is unable to treat the patient's injury at this facility and the patient will need to be transferred to [place] for further care. The patient prefers to be transferred to [place]. Transfer Center Called. - Time Spent with Patient Total time spent providing and/or coordinating discharge services: - Constitutional Vitals: Temp Pulse Resp BP Pulse Ox 97.7 F 61 16 117/72 99 11/17/16 07:43 11/17/16 07:43 11/17/16 07:43 11/17/16 07:43 11/17/16 07:43 General appearance: Present: cooperative, A&O X 3, no acute distress, answers questions appropriately - Head Head exam: Present: atraumatic, normocephalic - Eye Eye exam: Present: EOMI, normal appearance, PERRL, conjuntiva pink, sclera anicteric Pupils: Present: normal accommodation - Neck Neck exam general surgery: Present: supple, trachea midline - Respiratory Respiratory exam: Present: CTAB. Absent: accessory muscle use, rales, rhonchi, wheezes - Cardiovascular Cardiovascular exam: Present: RRR, +S1, +S2. Absent: diastolic murmur, gallop, rubs, systolic murmur - GI/Abdominal GI/Abdominal exam: Present: normal bowel sounds, soft, no peritoneal signs. Absent: distended, tenderness - Extremities Exam Extremities exam: Present: warm, radial pulses palpable and symmetrical. Absent : calf tenderness, cyanotic, pedal edema - Back Exam Back exam: Present: normal inspection (no erythema, swelling or eccymosis noted) , vertebral tenderness (to mid thoracic spine). Absent: CVA tenderness (L), CVA tenderness (R) - Neurological Exam Neurological exam: Present: alert, CN II-XII intact, oriented X3, reflexes normal, no focal deficits, strengths equal and symetr throughout. Absent: motor sensory deficit, facial droop, speech deficit - Psychiatric Psychiatric exam: Present: normal affect, normal mood - Skin Skin exam: Present: dry, intact <José Miguel More H - Last Filed: 11/17/16 14:01> Date of Encounter: 11/17/16 Date of admission: 11/17/16 05:37 Primary care physician: PCP NONE Hospital course: Mr. Tucker is a 51 year old male - Time Spent with Patient Total time spent providing and/or coordinating discharge services: - Constitutional Vitals: Temp Pulse Resp BP Pulse Ox 97.7 F 61 16 117/72 99 11/17/16 07:43 11/17/16 07:43 11/17/16 07:43 11/17/16 07:43 11/17/16 07:43 - Attending Attestation MRI of thoracic spine reveals a worsening thoracic kyphosis with evidence of osteomyelitis and disks space collapse T6-[address] Villalba recommended the patient to be transferred to [facility] has accepted the patient Time spent on this process: 40 min I examined this patient and my medical decision-making was reviewed with the Resident Physician. I agree with the documented findings, disposition and treatment plan as described except to the extent set forth below.
--- NOTE | 2016-11-17 12:24 | Spinal Consult Note ---
Date of Encounter: 11/17/16 Time of Encounter: 12:21 Assessment and Plan (1) Osteomyelitis of thoracic spine Current Visit: Yes Status: Chronic The patient is afebrile vital signs are stable. He is neurovascularly intact with regard to his bilateral upper and lower extremities. He has some tenderness palpation over the midthoracic spine. He has no clonus. He has a negative Harshil sign. MRI of thoracic spine reveals a worsening thoracic kyphosis with evidence of osteomyelitis and disks space collapse T6-7. Severe stenosis at this level. Impression: 1) Discitis/osteomyelitis thoracic spine with vertebral Collapse and kyphosis. 2) thoracic stenosis Plan: I think this patient would benefit from definitive management including consideration of a corpectomy of the mid thoracic spine with anterior and posterior instrumentation. He will also benefit from an infectious disease management. In this regard I recommend referral to a tertiary care center such as [facility], or [facility]. Discussed these options with the patient and patient is amenable to this plan. History of Present Illness Chief complaint: Thoracic back pain HPI: Mr. Bean is a 51 year old male Who has a long-standing history of osteomyelitis/discitis in the thoracic spine including past antibiotic treatment and some episodes of noncompliance. He is readmitted with worsening thoracic back pain by the hospitalist service. Workup revealed worsening thoracic discitis and osteomyelitis with progression of deformity. Patient is also followed by the infectious disease service and we are asked to discuss any role for surgical intervention and treatment. He denies any bowel bladder symptomatology. He denies any focal weakness. Past Med Surg Social Fam HX - Past Medical History Medical history: asthma, COPD Psychiatric history: no psych history - Past Surgical History Surgical History: orthopedic, other - Social History Smoking Status: Current every day smoker Smokeless Tobacco Status: No Alcohol use: none Drug use: none - Family History Mother Living Status: Still Living Hx Family Cardiac Disorders: No Hx Family Respiratory Disorders: No Hx Family Cancer: No Hx Family GI Disorders: No Hx Family Endocrine Disorder: No Hx Family Neuromuscular Disorders: No Hx Family Neurologic Disorders: No Hx Family HEENT Disorders: No Hx Family Autoimmune Disorders: No Father Name: michelle bean Living Status: Cause of : [place] Hx Family Cardiac Disorders: Yes Medications and Allergies No Known Home Drugs 11/08/16 [History] 3 Allergy/AdvReac Type Severity Reaction Status Date / Time Erythromycin Base Allergy Hives Verified 11/17/16 08:06 latex Allergy Rash Verified 11/17/16 08:06 Results - Labs Result Diagrams: 11/17/16 05:50 11/17/16 05:50 Labs: Abnormal lab results Potassium 3.3 mEq/L (3.5-4.5) L 11/17/16 05:50 Glucose 122 mg/dL (70-99) H 11/17/16 05:50 H & H 11/17/16 Range/Units 05:50 Hgb 13.6 (12.9-16.9) g/dL Hct 41.1 (37.5-50.1) % All other labs normal. Consult Discharge Plan - Plan Referrals: NONE,PCP [Primary Care Provider] -
[2016-11-17 14:02] LABS: C-Reactive Protein 10 mg/L (Less than 5)
[2016-11-17 15:57] VITALS: BP 116/77
[2016-11-17] MEDS ORDERED: Aminoglycoside Consult 1 EACH MC ONE (17:03)
[2016-11-17] MEDS ORDERED: Vancomycin (wt based) 1,000 MG VIAL IVPB SCH (21:00)
--- NOTE | 2016-11-18 16:18 | Electrocardiograph Report ---
[address] [address] Test Date: 2016-11-17 Pat Name: Gurjit Tucker Department: 104 Room: [facility] Gender: M [employer]: : 1965 Requested By: Arabella Jennings Order Number: [id number] Reading MD: Sigrid Mobley Measurements Intervals [place] Rate: 76 P: -23 GA: 119 QRS: 11 QRSD: 95 T: 58 QT: 343 QTc: 374 Interpretive Statements SINUS RHYTHM Electronically Signed On 11-18-2016 16:16:46 EDT by Sigrid Mobley
[2016-11-20 10:37] LABS: Amphetamines NEGATIVE ng/mL (Cutoff 30); Barbiturates NEGATIVE ng/mL (Cutoff 75); Benzodiazepines NEGATIVE ng/mL (Cutoff 75); Cocaine NEGATIVE ng/mL (Cutoff 30); Methadone NEGATIVE ng/mL (Cutoff 40); Methamphetamines NEGATIVE ng/mL (Cutoff 30); Phencyclidine NEGATIVE ng/mL (Cutoff 15)
[2016-11-21 07:30] LABS: Opiates POSITIVE ng/mL (Cutoff 30)
[2016-11-23 15:38] LABS: Hydrocodone Confirmation <2 ng/mL
[2016-11-24 11:02] LABS: 6_Acetylmorphine Confirmation <2 ng/mL; Oxymorphone Confirmation <2 ng/mL
== END 2016-11-17 17:04 | disposition other institution (70) | DRG 344 ==
LOC: 3NENU 23:26 → EMEROO 23:26 → 3NENU 11-17 01:47
PROVIDERS: ADMIT Internal Medicine; ATTEND Internal Medicine